=== PATIENT | male | born 1970 | race Caucasian/White ===

== ENCOUNTER 2020-07-04 05:36 | Inpatient (IN) ==
[2020-07-04] MEDS ORDERED: ONDANSETRON 4 MG/2 ML VIAL IV ONE (05:59)
[2020-07-04] MEDS ORDERED: PHENobarb/HYOSCY/ATROPINE/SCOP 1 DOSE BOTTLE PO ONE (05:59)
[2020-07-04] MEDS ORDERED: LORazepam 2 MG/ML VIAL IV ONE (06:00)
--- NOTE | 2020-07-04 06:12 | Emergency Department Note ---
HPI General Chief complaint: Fall Stated complaint: FALL Time Seen by Provider: 07/04/20 05:50 Source: patient Mode of arrival: ambulatory Limitations: no limitations History of Present Illness HPI Narrative: Narrative: Patient presents to room T5 for evaluation of multiple complaints. The patient does have a history of chronic pain syndrome and recurrent alcohol abuse. The patient states that he started drinking several days ago. He states he continued to drink to "avoid withdrawal." He subsequently had a mechanical fall where he injured his right shoulder. He also states he has had multiple episodes of vomiting associated with drinking. He states this is caused him to be dehydrated. He reports he has difficulty hydrating orally due to the fact that he is esophagus is so raw from all of the vomiting. He states that he did have some mild blood streaks noted in his vomitus. He states that he has not eaten much food over the last several days as well. She reports diffuse pain throughout his body but does not localize 1 specific area of pain. Symptoms are constant. He denies any exacerbating or alleviating factors. Related Data Previous Rx's Medication Instructions Recorded promethazine 25 mg tablet 25 mg PO Q6H PRN #30 tab 01/25/17 bilat thumb spica splint #2 each 04/12/19 albuterol sulfate 90 mcg/actuation 90 mcg INHALATION Q6H PRN #18 g 08/07/19 aerosol inhaler fluticasone propionate 50 1 spray INTRANASAL BID #16 g 08/07/19 mcg/actuation nasal spray,suspension lisinopril 20 mg tablet See Rx Instructions .ROUTE 11/21/19 .COMPLEX #30 tab lorazepam 1 mg tablet 1 mg PO ONCE PRN #2 tab 12/17/19 pregabalin 50 mg capsule 50 mg PO .COMPLEX #60 cap 01/15/20 fluticasone 500 mcg-salmeterol 50 See Rx Instructions .ROUTE 02/20/20 mcg/dose blistr powdr for .COMPLEX #60 each inhalation omeprazole 40 mg capsule,delayed See Rx Instructions .ROUTE 03/21/20 release .COMPLEX #30 cap meloxicam 15 mg tablet 15 mg PO QDAY #30 tab 04/30/20 montelukast 10 mg tablet 10 mg PO QHS #90 tab 04/30/20 amitriptyline 100 mg tablet See Rx Instructions .ROUTE 05/08/20 .COMPLEX #90 tab amlodipine 10 mg tablet See Rx Instructions .ROUTE 05/20/20 .COMPLEX #90 tab methocarbamol 750 mg tablet 750 mg PO QHS PRN #30 tab 05/23/20 hydrocodone 7.5 mg-acetaminophen 1 tab PO QHS PRN #30 tab MDD 1 06/13/20 325 mg tablet duloxetine 60 mg capsule,delayed 60 mg PO QDAY #30 cap 06/24/20 release Allergies Allergy/AdvReac Type Severity Reaction Status Date / Time No Known Drug Allergies Allergy Unknown Verified 06/24/20 10:54 [NO KNOWN DRUG ALLERGIES] dust Allergy Unknown Watery Eye Uncoded 06/24/20 10:54 trees Allergy Unknown Watery Eye Uncoded 06/24/20 10:54 Review of Systems ROS ROS Narrative: Narrative: All systems ED: reviewed and negative except as stated. PFSH Narrative Patient History Narrative: Narrative: Medical/Surgical/Family History All Active Problems (Updated 07/04/20 @ 06:12 by Ponce Ignacio MD) Alcoholic gastritis (Acute) Injury of shoulder (Acute) History of colonoscopy (Acute 04/09/20) Cervical myelopathy (Chronic) Cervical radiculopathy (Chronic) Chronic pain (Chronic) Pain of both elbows (Chronic) Bilateral hand numbness (Chronic) Hyperlipidemia (Chronic) Thoracic spondylosis without myelopathy (Chronic) Prolapsed cervical intervertebral disc (Chronic) Cervical disc disorder with radiculopathy (Chronic) Tendonitis (Chronic) Right knee pain (Chronic) Cramping of hands (Chronic) Sciatica (Chronic) Right shoulder pain (Chronic) Numbness and tingling of right arm (Chronic) Right-sided chest pain (Chronic) Asthma (Chronic) Wears partial dentures (Chronic) Snoring (Chronic) Seasonal allergies (Chronic) Hearing loss (Chronic) Migraine (Chronic) Triceps tendon rupture (Chronic) History of ECG (Chronic 02/20/15) Headache (Chronic) Neck pain (Chronic) Psoriasis (Chronic 08/01/14) Pancreatitis (Chronic) Essential hypertension (Chronic) Chronic low back pain (Chronic 08/01/14) Alcoholism (Chronic 07/30/14) Adjustment reaction with anxiety and depression (Chronic 07/30/14) Acne (Chronic) Acid reflux (Chronic) Medical History Abdominal pain Acid reflux 04/18/18 he has been off omeprazole, plan to restart Acne Adjustment reaction with anxiety and depression (07/30/14) improved on paroxetine and lorazepam. 07/22/15 patient took himself off medication approximately one month ago and does not want to start back on medication. I discussed the importance of medication and the rationale for continued use, abstaining from alcohol but he declines at this time. 12/09/15 stop lorazepam, I discussed with patient I would no longer give him lorazepam with his continued alcohol use and use of hydrocodone 06/07/17 PHQ 9=15. improving per patient, agreeable to dose increase of amitriptyline 04/18/18 PHQ 9=11. Continue amitriptyline 75 and Cymbalta 20, encouraged him to abstain from alcohol, follow-up 3 months 07/18/2018 feeling okay, declines PHQ 9, request a dose increase in amitriptyline, plan to slowly taper up to 100 mg and continue Cymbalta 20 01/15/2020 he is feeling stable on amitriptyline and Cymbalta, follow-up 2 months 03/18/20 deteriorated with weather change and dark days, increase Cymbalta 30 mg, continue amitriptyline, follow-up 3 months Alcoholic intoxication Alcoholism (07/30/14) 12/09/15 stressed importance of support through and [facility]. Abstain from alcohol, discussed rationale. per patient report, he has cut down considerably on alcohol 03/17/16 patient drinking again, advised him to quit, discussed the risks associated with hydrocodone and alcohol and I declined refilling hydrocodone today he was upset and walked out 07/18/2018 praise for continued decreased amounts of alcohol, continue these efforts 03/18/2020 feels stable on amitriptyline Anxiety Arthritis of right acromioclavicular joint Asthma 04/18/18 deteriorated, increase Flovent, discussed rationale, continue to use albuterol as needed, follow-up 3-month 07/18/2018 not completely improved, increase Flovent, add Singulair, Itzel and Flonase, discussed rationale, use and side effects, follow-up 1 month 08/15/2018 stop Flovent, start Advair, continue Singulair, Itzel and Flonase, discussed rationale and side effects, follow-up 3 months 04/10/2019 stable with Advair, Singulair, Flonase. Continue. Insurance would not cover Itzel, follow-up 3 months 08/07/2019 improved with Advair, Singulair, Flonase Bilateral hand numbness Nerve conduction study normal 08/07/2019 wear braces, use anti-inflammatories and to start physical therapy 11/06/2019 continues to have right thumb tendinitis, completed physical therapy, continue to wear thumb spica splint Cervical disc disorder with radiculopathy 08/07/2019 start low-dose gabapentin, discussed use, rationale & side effects, follow-up with Ortho, follow-up here in 3 months 11/06/2019 increase gabapentin 300 twice daily, discussed side effects, he has an appoint with orthopedics in 1 month if he does not show for this appointment he will be discharged from their clinic, follow-up 1 month 12/12/2019 continued, physical therapy not approved by insurance, continue Mob ic, trial of 1 hydrocodone a day, discussed risks versus benefits, referred to the pain clinic and follow-up in 1 month 01/15/2020 he stopped gabapentin, physical therapy not approved by insurance, encouraged him to be in contact with the pain clinic for a plan, trial of Lyrica, discussed use, rationale and side effects. Follow-up 2 months Cervical myelopathy Cervical radiculopathy Chronic low back pain (08/01/14) 12/26/2018 obtain x-ray, encouraged gentle stretching, range of motion, continue muscle relaxer, Mobic, start physical therapy and follow-up in 3 months 04/10/2019 ongoing, encouraged him to get back with physical therapy, continue muscle relaxer, Mobic, follow-up 3 months 07/12/2019 deteriorated, continue muscle relaxer, Mobic, tramadol given for increased pain 12/12/2019 continued, physical therapy not approved by insurance, continue Mobic, trial of 1 hydrocodone a day, discussed risks versus benefits, referred to the pain clinic and follow-up in 1 month 01/15/2020 he stopped gabapentin, physical therapy not approved by insurance, encouraged him to be in contact with the pain clinic for a plan, trial of Lyrica, discussed use, rationale and side effects. Follow-up 2 months 03/18/19 no longer taking gabapentin, plans to start physical therapy, continue Lyrica, increase duloxetine to 30 mg, continue care at the pain clinic, follow-up 3 months Chronic pain Concussion Concussion Depression Diarrhea Essential hypertension 03/18/20 stable on lisinopril 20mg and amlodipine 10mg, encouraged healthy diet, exercise, check fasting labs, follow-up 3 months Gastritis Gastritis Headache encouraged gentle stretching, range of motion, use of heat and prevention of tension headache to prevent migraine headaches. 11/07/15 strongly encouraged him to take nightly Topamax, hydrocodone when necessary. 12/09/15 reviewed the above and recent head CT in ER with pt today. 02/10/16 Discussed the risks associated with hydrocodone and alcohol use and these should not to be taken together. follow up 4-6 weeks 03/17/16 patient drinking and taking hydrocodone, I declined filling hydrocodone today and patient upset and walked out 04/22/[address] Butts and last seen 04/12/16 next appointment 12/29/16 pt declines going back to Dr. Butts, I decline giving him hydrocodone, discussed multiple reasons for not giving hydrocodone, pt upset and states he will find a provider who will give it to him 01/25/17 Imitrex, gabapentin and Topamax not helpful. he isn't sure if he is tried amitriptyline or nortriptyline. discussed headaches at length, tension headaches and migraines. Handout on migraine headaches given. Encourage headache journal and avoidance of food, beverages and lifestyle habits that contribute to headaches. Encouraged gentle stretching, range of motion, improved posture and trial of Maxalt. Follow-up 1 month 02/24/17 Maxalt not helpful. Discussed headaches in detail, triggers, trial of amitriptyline and slowly titrate up, discussed use, rationale and side effects. Follow up in 6-8 weeks, sooner if needed 04/05/17? Unchanged, is tolerating headaches better, increased amitriptyline from 20 to 25mg, follow-up 3 months 06/07/17 increase amitriptyline to 35 mg, discussed with patient we may need to be on a higher dose of amitriptyline 01/13/18 encouraged him to abstain from alcohol, increase amitriptyline to 75 mg bedtime and Cymbalta 20 mg a day, follow-up 3 months, sooner if needed 04/10/2019 improved with amitriptyline 100 and Cymbalta 20 Hearing loss Heartburn History of CT scan of head (11/28/15) History of ECG (02/20/15) Hyperlipidemia 08/07/2019 improved, LDL 124, recheck 1 year Indigestion Laceration Left rib fracture Left rib fracture Migraine Maxalt, sumatriptan, Topamax, gabapentin not helpful. seen by Jagdish Butts 04/12/16 12/29/16 pt declines going back to Dr. Butts, I decline giving him hydrocodone, discussed multiple reasons for not giving hydrocodone, pt upset 04/05/17 ? Unchanged, is tolerating headaches better, increased amitriptyline 04/18/18 chronic ongoing, continue amitriptyline 75 mg bedtime and Cymbalta 20 mg a day, follow-up 3 months, sooner if needed 04/10/2019 improved with amitriptyline 100 and Cymbalta 20 07/12/2019 deteriorated, discussed common triggers, continue Mobic, muscle relaxer, tramadol given for severe pain, obtain MRI of brain and follow-up 2 months 01/15/2020 brain MRI showing normal brain Neck pain 09/01/17 reviewed recent MRI of neck with patient, refer to orthopedics for both right shoulder and neck, Cymbalta, trial of prednisone, cyclobenzaprine and Mobic 10/13/17 status post right shoulder surgery on 09/05/17, neck surgery is scheduled next per patient. Patient never took prednisone. Continues to take Cymbalta and amitriptyline 04/18/18 cyclobenzaprine not helpful, continue Mobic, encouraged him to follow- up with orthopedics 07/18/2018 he has not heard from orthopedics, referral made today, continue Mobic 11/24/2018 deteriorated, unable to tolerate physical therapy, increase Mobic, encouraged him to contact orthopedics and follow-up here in 1 month 12/26/2018 he has been unable to contact orthopedic, refer to the pain clinic 04/10/2019 chronic ongoing, encouraged gentle stretching, range of motion, Mobic, muscle relaxer, PT, follow-up 3 months and consider pain clinic 07/12/2019 deteriorated, obtain MRI, refer back to Ortho, continue Mobic, muscle relaxer, gentle stretching, range of motion, tramadol for severe pain, follow-up 2 months 12/12/2019 continued, physical therapy not approved by insurance, continue Mobic, trial of 1 hydrocodone a day, discussed risks versus benefits, referred to the pain clinic and follow-up in 1 month 01/15/2020 he stopped gabapentin, physical therapy not approved by insurance, reviewed recent imaging with patient in detail, encouraged him to be in contact with the pain clinic for a plan, trial of Lyrica, discussed use, rationale and side effects. Follow-up 2 months 03/18/2020 continue care at pain clinic, start physical therapy, continue Lyrica, follow-up 3 months Numbness and tingling of right arm 06/07/17 encouraged massage, gentle stretching, range of motion, use of heat, obtain x-ray and MRI. 10/13/17 status post right shoulder surgery on 09/05/17, neck surgery is scheduled next per patient 07/12/2019 nerve conduction study normal, encouraged him to follow-up with orthopedics, obtain thumb spica splints 11/06/2019 nerve pain likely from his neck, keep Ortho appointment scheduled, wear thumb spica splint Pain of both elbows Nerve conduction study normal 08/07/2019 wear braces, use anti-inflammatories and to start physical therapy 11/06/2019 he completed physical therapy Pancreatitis Prolapsed cervical intervertebral disc Psoriasis (08/01/14) Right shoulder pain 09/01/17 request records from orthopedics, sounds like he will have surgery soon 10/13/17 status post surgery, healing well, continue new orthopedics recommendations Right-sided chest pain 06/07/17 encouraged massage, gentle stretching, range of motion, use of heat, obtain x-ray and MRI. Follow-up 4-6 weeks 07/20/17 still awaiting MRI, it is scheduled today start physical therapy, obtain nerve conduction study and shoulder MRI, follow-up 6 weeks Sciatic pain Sciatica 2012 Sciatica Seasonal allergies 07/18/2018 add Singulair, Itzel and Flonase, discussed use, rationale and side effects. 08/07/2019 attempt to get Itzel approved, refilled Singulair, Flonase Snoring Subacromial impingement of right shoulder Subdural hematoma, post-traumatic (02/20/15) Subdural hematoma, post-traumatic Swelling of joint, elbow, right x-ray negative for fracture. 11/07/15 improved, seen by or so, continue to wear sling 12/09/15 continues to have pain elbow site, worse after using, okay to use hydrocodone as needed for pain 01/09/16 improved Thoracic spondylosis without myelopathy 12/26/2018 encouraged gentle stretching, range of motion, start physical therapy Triceps tendon rupture Right, Initial encounter URI (upper respiratory infection) URI (upper respiratory infection) Wears partial dentures Surgical History H/O craniotomy (02/20/15) Dr. Chen 02/20/15 for subdural hematoma History of arthroscopy of right shoulder (09/05/17) 09/05/17 [facility] History of colonoscopy (04/09/20) History of esophagogastroduodenoscopy (05/28/15) History of oral surgery 1985 Family History Grandfather Cerebrovascular accident Malignant neoplasm of lung Grandmother Malignant neoplasm of lung Acute myocardial infarction Social History Smoking Status: Never smoker Alcohol Intake Frequency: a few times a month Substance Use: marijuana Exam Narrative Narrative: Narrative: General Limitations: no limitations General appearance: Present alert and in no apparent distress Head Head: Present atraumatic, normocephalic and normal inspection Eye Eye: Present normal appearance and EOMI; Absent conjunctival injection ENT ENT: Present normal exam and mucous membranes moist Neck Neck: Present normal inspection and trachea midline Respiratory Respiratory: Present normal lung sounds bilaterally; Absent respiratory distress Cardiovascular Cardiovascular: Present regular rate, normal rhythm and normal heart sounds Adbominal Abdominal: Present soft; Absent distention, tenderness, guarding and rebound Extremities Extremities: Present normal inspection and full ROM; Absent tenderness (The patient has ecchymosis overlying the anterior there is full range of motion without pain. There are no pops or clicks. There is no focal areas of tenderness to palpation or obvious deformity.) Back Back: Present normal inspection; Absent tenderness Neurological Neurological: Present alert, oriented X3 and CN II-XII intact; Absent motor sensory deficit Psychiatric Psychiatric: Present normal affect and normal mood Skin Skin: Present warm (WNL), dry and other (Diffuse ecchymosis over the right anterior chest and shoulder.); Absent rash Course Vital Signs Vital signs: Vital Signs Temperature 97.3 F 07/04/20 05:38 Pulse Rate 129 H 07/04/20 05:38 Respiratory Rate 18 07/04/20 05:38 Blood Pressure 151/112 07/04/20 05:38 Pulse Oximetry (%) 100 07/04/20 05:38 Temperature 97.3 F 07/04/20 05:38 Pulse Rate 129 H 07/04/20 05:38 Respiratory Rate 18 07/04/20 05:38 Blood Pressure 151/112 07/04/20 05:38 Pulse Oximetry (%) 100 07/04/20 05:38 MDM MDM Narrative Medical decision making narrative: Narrative: On arrival the patient has multiple complaints however is pleasant and is in no apparent distress. The patient is tachycardic and he was given IV fluid hydration in the form of a banana bag. He was also given Zofran and Ativan for withdrawal symptoms. The patient does not have any form of delirium or hypertension and I have low suspicion for major alcohol withdrawal or impending DTs at this time. The patient was also given a GI cocktail for his reported dysphagia. I suspect the patient does have a certain amount of alcoholic gastritis/esophagitis which we will treat. Diagnostic studies have been ordered. These have not yet resulted. I have asked the oncoming physician to follow-up on these lab results as well as assumed care, reassess the patient and provide disposition. Discharge Plan Patient/Caregiver Discharge Instructions Pt seen by FOREMAN/PROJECT MANAGER/PA only: No Clinical Impression: Alcoholic gastritis, Injury of shoulder Patient Disposition: Still a Patient Follow up with: Britany Chow ARNP [Primary Care Provider] - Prescriptions: No Action (DME) bilat thumb spica splint medium Qty: 2 RF: 0 lisinopril 20 mg tablet See Rx Instructions .ROUTE .COMPLEX Qty: 30 RF: 8 lorazepam 1 mg tablet 1 mg PO ONCE PRN (Reason: anxiety) Qty: 2 RF: 0 fluticasone propion-salmeterol 500-50 mcg/dose blister with device See Rx Instructions .ROUTE .COMPLEX Qty: 60 RF: 0 omeprazole 40 mg capsule,delayed release(DR/EC) See Rx Instructions .ROUTE .COMPLEX Qty: 30 RF: 9 montelukast 10 mg tablet 10 mg PO QHS Qty: 90 RF: 1 meloxicam 15 mg tablet 15 mg PO QDAY Qty: 30 RF: 0 amitriptyline 100 mg tablet See Rx Instructions .ROUTE .COMPLEX Qty: 90 RF: 0 amlodipine 10 mg tablet See Rx Instructions .ROUTE .COMPLEX Qty: 90 RF: 0 methocarbamol 750 mg tablet 750 mg PO QHS PRN (Reason: muscle spasm) Qty: 30 RF: 0 hydrocodone-acetaminophen 7.5-325 mg tablet 1 tab PO QHS MDD 1 PRN (Reason: pain) Qty: 30 RF: 0 fluticasone propionate [Flonase Allergy Relief] 50 mcg/actuation spray,suspension 1 spray Intranasal BID Qty: 16 RF: 11 albuterol sulfate 90 mcg/actuation HFA aerosol inhaler 90 mcg INHALATION Q6H PRN (Reason: shortness of breath) Qty: 18 RF: 2 pregabalin [Lyrica] 50 mg capsule 50 mg PO .COMPLEX Qty: 60 RF: 2 promethazine 25 mg tablet 25 mg PO Q6H PRN (Reason: nausea and vomiting) Qty: 30 RF: 0 duloxetine [Cymbalta] 60 mg capsule,delayed release(DR/EC) 60 mg PO QDAY Qty: 30 RF: 3
[2020-07-04] MEDS: POTASSIUM CHLORIDE 20 MEQ, MAGNESIUM SULFATE 16.24 MEQ, THIAMINE 100 MG, MVI, ADULT NO.... IV SCH ×4 (06:34→18:39)
[2020-07-04 06:49] LABS: Basophils # (Auto) 0.03 K/mcL (0.00-0.20); Basophils % (Auto) 0.1 % (0.0-2.0); Eosinophils # (Auto) 0 K/mcL (0.00-0.70); Eosinophils % (Auto) 0 % (0.0-7.0); Hematocrit 35.5 % (41.0-55.0); Hemoglobin 13.3 g/dL (13.5-16.5); Lymphocytes # (Auto) 1.22 K/mcL (1.50-4.80); Lymphocytes % (Auto) 5.4 % (15.0-49.0); Mean Cell Volume 87.9 fL (80.0-100.0); Mean Corpuscular HGB Conc 37.5 g/dL (31.0-36.0); Mean Platelet Volume 9.9 fL (7.4-10.4); Monocytes # (Auto) 1.41 K/mcL (0.10-0.90); Monocytes % (Auto) 6.3 % (1.0-12.0); Neutrophils % (Auto) 88.2 % (38.0-78.0); Platelet Count 264 K/mcL (140-440); RBC 4.04 M/mcL (4.50-5.90); Red Cell Distribution Width 11.7 % (11.5-14.5); WBC 22.5 K/mcL (4.5-11.0)
[2020-07-04 07:03] LABS: ALT/SGPT 76 U/L (<40); AST/SGOT 72 U/L (<40); Albumin 4.2 gm/dL (3.2-5.2); Albumin/Globulin Ratio 1.2 (1.0-2.3); Alkaline Phosphatase 97 U/L (39-117); Bilirubin,Total 0.7 mg/dL (0.1-1.0); Blood Urea Nitrogen 25 mg/dL (6-20); Calcium 9.4 mg/dL (8.6-10.4); Carbon Dioxide 26 mmol/L (22-30); Chloride 81 mmol/L (96-108); Globulin 3.6 gm/dL (2.2-3.7); Glomerular Filtration Rate 87; Glucose 174 mg/dL (70-105)
[2020-07-04] MEDS ORDERED: CEFEPIME 2 GM VIAL IV ONE (07:39)
--- NOTE | 2020-07-04 07:43 | Emergency Department Note ---
Fall HPI General Chief Complaint: Fall Stated Complaint: FALL Time Seen by Provider: 07/04/20 05:50 Source: patient Mode of arrival: ambulatory History of Present Illness HPI Narrative: Care assumed from Dr. Ignacio. 50-year-old male arrives after being very unsteady and falling recently. History of alcohol abuse states he is not had an alcoholic drink in the last several days. Has large area of ecchymosis right shoulder without pain and has full painless range of motion. Denies fevers but states he has had some chills. Also has had significant nausea and vomiting he states are related to alcohol abuse. Patient denies chest pain denies shortness of breath denies. Denies any diarrhea. Related Data Previous Rx's Medication Instructions Recorded bilat thumb spica splint #2 each 04/12/19 albuterol sulfate 90 mcg/actuation 90 mcg INHALATION Q6H PRN #18 g 08/07/19 aerosol inhaler amitriptyline 100 mg tablet See Rx Instructions .ROUTE 07/22/20 .COMPLEX #90 tab amlodipine 10 mg tablet See Rx Instructions .ROUTE 07/22/20 .COMPLEX #90 tab duloxetine 60 mg capsule,delayed 60 mg PO QDAY #90 cap 07/22/20 release etodolac 400 mg tablet 400 mg PO BID PRN #60 tab 07/22/20 fluticasone 500 mcg-salmeterol 50 See Rx Instructions .ROUTE 07/22/20 mcg/dose blistr powdr for .COMPLEX #60 each inhalation fluticasone propionate 50 1 spray INTRANASAL BID #16 g 07/22/20 mcg/actuation nasal spray,suspension lisinopril 20 mg tablet See Rx Instructions .ROUTE 07/22/20 .COMPLEX #90 tab methocarbamol 750 mg tablet 750 mg PO QHS PRN #90 tab 07/22/20 montelukast 10 mg tablet 10 mg PO QHS #90 tab 07/22/20 pantoprazole 40 mg tablet,delayed 40 mg PO QDAY #90 tab 07/22/20 release pregabalin 50 mg capsule 50 mg PO BID #180 cap 07/22/20 Allergies Allergy/AdvReac Type Severity Reaction Status Date / Time No Known Drug Allergies Allergy Unknown Verified 07/22/20 11:22 [NO KNOWN DRUG ALLERGIES] Review of Systems ROS ROS Narrative: Narrative: All systems ED: reviewed and negative except as stated. Constitutional: Reports chills; Denies fever Eyes: Denies vision change Cardiovascular: Denies chest pain Respiratory: Denies shortness of breath and cough Gastrointestinal: Denies abdominal pain, vomiting and diarrhea Genitourinary: Denies dysuria, frequency, urgency and hematuria Musculoskeletal: Denies back pain and joint pain Integumentary: Denies rash Neurological: Reports abnormal gait (Unsteady gait); Denies headache and dizziness Psychiatric: Denies anxiety, suicidal thoughts and homicidal thoughts Endocrine: Denies polydipsia and polyuria Hematological/Lymphatic: Denies easy bleeding and easy bruising [facility] Narrative Patient History Narrative: Narrative: Medical/Surgical/Family History All Active Problems (Updated 07/22/20 @ 13:21 by NAJMA Johnson) Delirium tremens (Acute) Hematemesis (Acute) Gastroparalysis (Acute) Alcoholic gastritis (Acute) Injury of shoulder (Acute) Leukocytosis (Acute) Hyponatremia (Acute) Dehydration (Acute) Hypokalemia (Acute) History of colonoscopy (Acute 04/09/20) Cervical myelopathy (Chronic) Cervical radiculopathy (Chronic) Chronic pain (Chronic) Pain of both elbows (Chronic) Bilateral hand numbness (Chronic) Hyperlipidemia (Chronic) Thoracic spondylosis without myelopathy (Chronic) Prolapsed cervical intervertebral disc (Chronic) Cervical disc disorder with radiculopathy (Chronic) Tendonitis (Chronic) Right knee pain (Chronic) Cramping of hands (Chronic) Sciatica (Chronic) Right shoulder pain (Chronic) Numbness and tingling of right arm (Chronic) Right-sided chest pain (Chronic) Asthma (Chronic) Wears partial dentures (Chronic) Snoring (Chronic) Seasonal allergies (Chronic) Hearing loss (Chronic) Migraine (Chronic) Triceps tendon rupture (Chronic) History of ECG (Chronic 02/20/15) Headache (Chronic) Neck pain (Chronic) Psoriasis (Chronic 08/01/14) Pancreatitis (Chronic) Essential hypertension (Chronic) Chronic low back pain (Chronic 08/01/14) Alcoholism (Chronic 07/30/14) Adjustment reaction with anxiety and depression (Chronic 07/30/14) Acne (Chronic) Acid reflux (Chronic) Medical History Abdominal pain Acid reflux 04/18/18 he has been off omeprazole, plan to restart Acne Adjustment reaction with anxiety and depression (07/30/14) improved on paroxetine and lorazepam. 07/22/15 patient took himself off medication approximately one month ago and does not want to start back on medication. I discussed the importance of medication and the rationale for continued use, abstaining from alcohol but he declines at this time. 12/09/15 stop lorazepam, I discussed with patient I would no longer give him lorazepam with his continued alcohol use and use of hydrocodone 06/07/17 PHQ 9=15. improving per patient, agreeable to dose increase of amitriptyline 04/18/18 PHQ 9=11. Continue amitriptyline 75 and Cymbalta 20, encouraged him to abstain from alcohol, follow-up 3 months 07/18/2018 feeling okay, declines PHQ 9, request a dose increase in amitriptyline, plan to slowly taper up to 100 mg and continue Cymbalta 20 01/15/2020 he is feeling stable on amitriptyline and Cymbalta, follow-up 2 months 03/18/20 deteriorated with weather change and dark days, increase Cymbalta 30 mg, continue amitriptyline, follow-up 3 months 06/24/2020 deteriorated, increase Cymbalta 60 mg, follow-up 3 months Alcoholic intoxication Alcoholism (07/30/14) 12/09/15 stressed importance of support through and [facility]. Abstain from alcohol, discussed rationale. per patient report, he has cut down considerably on alcohol 03/17/16 patient drinking again, advised him to quit, discussed the risks associated with hydrocodone and alcohol and I declined refilling hydrocodone today he was upset and walked out 07/18/2018 praise for continued decreased amounts of alcohol, continue these efforts 03/18/2020 feels stable on amitriptyline Anxiety Arthritis of right acromioclavicular joint Asthma 04/18/18 deteriorated, increase Flovent, discussed rationale, continue to use albuterol as needed, follow-up 3-month 07/18/2018 not completely improved, increase Flovent, add Singulair, Itzel and Flonase, discussed rationale, use and side effects, follow-up 1 month 08/15/2018 stop Flovent, start Advair, continue Singulair, Itzel and Flonase, discussed rationale and side effects, follow-up 3 months 04/10/2019 stable with Advair, Singulair, Flonase. Continue. Insurance would not cover Iztel, follow-up 3 months 08/07/2019 improved with Advair, Singulair, Flonase Bilateral hand numbness Nerve conduction study normal 08/07/2019 wear braces, use anti-inflammatories and to start physical therapy 11/06/2019 continues to have right thumb tendinitis, completed physical therapy, continue to wear thumb spica splint Cervical disc disorder with radiculopathy 08/07/2019 start low-dose gabapentin, discussed use, rationale & side effects, follow-up with Ortho, follow-up here in 3 months 11/06/2019 increase gabapentin 300 twice daily, discussed side effects, he has an appoint with orthopedics in 1 month if he does not show for this appointment he will be discharged from their clinic, follow-up 1 month 12/12/2019 continued, physical therapy not approved by insurance, continue Mobic, trial of 1 hydrocodone a day, discussed risks versus benefits, referred to the pain clinic and follow-up in 1 month 01/15/2020 he stopped gabapentin, physical therapy not approved by insurance, encouraged him to be in contact with the pain clinic for a plan, trial of Lyrica, discussed use, rationale and side effects. Follow-up 2 months Cervical myelopathy Cervical radiculopathy Chronic low back pain (08/01/14) 12/26/2018 obtain x-ray, encouraged gentle stretching, range of motion, continue muscle relaxer, Mobic, start physical therapy and follow-up in 3 months 04/10/2019 ongoing, encouraged him to get back with physical therapy, continue muscle relaxer, Mobic, follow-up 3 months 07/12/2019 deteriorated, continue muscle relaxer, Mobic, tramadol given for increased pain 12/12/2019 continued, physical therapy not approved by insurance, continue Mobic, trial of 1 hydrocodone a day, discussed risks versus benefits, ref erred to the pain clinic and follow-up in 1 month 01/15/2020 he stopped gabapentin, physical therapy not approved by insurance, encouraged him to be in contact with the pain clinic for a plan, trial of Lyrica, discussed use, rationale and side effects. Follow-up 2 months 03/18/19 no longer taking gabapentin, plans to start physical therapy, continue Lyrica, increase duloxetine to 30 mg, continue care at the pain clinic, follow-up 3 months Chronic pain Concussion Concussion Depression Diarrhea Essential hypertension 06/24/2020 stable on lisinopril 20mg and amlodipine 10mg, encouraged healthy diet, exercise, follow-up 3 months Gastritis Gastritis Headache encouraged gentle stretching, range of motion, use of heat and prevention of tension headache to prevent migraine headaches. 11/07/15 strongly encouraged him to take nightly Topamax, hydrocodone when necessary. 12/09/15 reviewed the above and recent head CT in ER with pt today. 02/10/16 Discussed the risks associated with hydrocodone and alcohol use and these should not to be taken together. follow up 4-6 weeks 03/17/16 patient drinking and taking hydrocodone, I declined filling hydrocodone today and patient upset and walked out 04/22/[address] Butts and last seen 04/12/16 next appointment 12/29/16 pt declines going back to Dr. Butts, I decline giving him hydrocodone, discussed multiple reasons for not giving hydrocodone, pt upset and states he will find a provider who will give it to him 01/25/17 Imitrex, gabapentin and Topamax not helpful. he isn't sure if he is tried amitriptyline or nortriptyline. discussed headaches at length, tension headaches and migraines. Handout on migraine headaches given. Encourage headache journal and avoidance of food, beverages and lifestyle habits that contribute to headaches. Encouraged gentle stretching, range of motion, improved posture and trial of Maxalt. Follow-up 1 month 02/24/17 Maxalt not helpful. Discussed headaches in detail, triggers, trial of amitriptyline and slowly titrate up, discussed use, rationale and side effects. Follow up in 6-8 weeks, sooner if needed 04/05/17? Unchanged, is tolerating headaches better, increased amitriptyline from 20 to 25mg, follow-up 3 months 06/07/17 increase amitriptyline to 35 mg, discussed with patient we may need to be on a higher dose of amitriptyline 01/13/18 encouraged him to abstain from alcohol, increase amitriptyline to 75 mg bedtime and Cymbalta 20 mg a day, follow-up 3 months, sooner if needed 04/10/2019 improved with amitriptyline 100 and Cymbalta 20 Hearing loss Heartburn History of CT scan of head (11/28/15) History of ECG (02/20/15) Hyperlipidemia 08/07/2019 improved, LDL 124, recheck 1 year Indigestion Laceration Left rib fracture Left rib fracture Migraine Maxalt, sumatriptan, Topamax, gabapentin not helpful. seen by Jagdish Butts 04/12/16 12/29/16 pt declines going back to Dr. Butts, I decline giving him hydrocodone, discussed multiple reasons for not giving hydrocodone, pt upset 04/05/17 ? Unchanged, is tolerating headaches better, increased amitriptyline 04/18/18 chronic ongoing, continue amitriptyline 75 mg bedtime and Cymbalta 20 mg a day, follow-up 3 months, sooner if needed 04/10/2019 improved with amitriptyline 100 and Cymbalta 20 07/12/2019 deteriorated, discussed common triggers, continue Mobic, muscle relaxer, tramadol given for severe pain, obtain MRI of brain and follow-up 2 months 01/15/2020 brain MRI showing normal brain Neck pain 09/01/17 reviewed recent MRI of neck with patient, refer to orthopedics for both right shoulder and neck, Cymbalta, trial of prednisone, cyclobenzaprine and Mobic 10/13/17 status post right shoulder surgery on 09/05/17, neck surgery is scheduled next per patient. Patient never took prednisone. Continues to take Cymbalta and amitriptyline 04/18/18 cyclobenzaprine not helpful, continue Mobic, encouraged him to follow- up with orthopedics 07/18/2018 he has not heard from orthopedics, referral made today, continue Mobic 11/24/2018 deteriorated, unable to tolerate physical therapy, increase Mobic, encouraged him to contact orthopedics and follow-up here in 1 month 12/26/2018 he has been unable to contact orthopedic, refer to the pain clinic 04/10/2019 chronic ongoing, encouraged gentle stretching, range of motion, Mobic, muscle relaxer, PT, follow-up 3 months and consider pain clinic 07/12/2019 deteriorated, obtain MRI, refer back to Ortho, continue Mobic, muscle relaxer, gentle stretching, range of motion, tramadol for severe pain, follow-up 2 months 12/12/2019 continued, physical therapy not approved by insurance, continue Mobic, trial of 1 hydrocodone a day, discussed risks versus benefits, referred to the pain clinic and follow-up in 1 month 01/15/2020 he stopped gabapentin, physical therapy not approved by insurance, reviewed recent imaging with patient in detail, encouraged him to be in contact with the pain clinic for a plan, trial of Lyrica, discussed use, rationale and side effects. Follow-up 2 months 03/18/2020 continue care at pain clinic, start physical therapy, continue Lyrica, follow-up 3 months Numbness and tingling of right arm 06/07/17 encouraged massage, gentle stretching, range of motion, use of heat, obtain x-ray and MRI. 10/13/17 status post right shoulder surgery on 09/05/17, neck surgery is scheduled next per patient 07/12/2019 nerve conduction study normal, encouraged him to follow-up with orthopedics, obtain thumb spica splints 11/06/2019 nerve pain likely from his neck, keep Ortho appointment scheduled, wear thumb spica splint Pain of both elbows Nerve conduction study normal 08/07/2019 wear braces, use anti-inflammatories and to start physical therapy 11/06/2019 he completed physical therapy Pancreatitis Prolapsed cervical intervertebral disc Psoriasis (08/01/14) Right shoulder pain 09/01/17 request records from orthopedics, sounds like he will have surgery soon 10/13/17 status post surgery, healing well, continue new orthopedics recommendations Right-sided chest pain 06/07/17 encouraged massage, gentle stretching, range of motion, use of heat, obtain x-ray and MRI. Follow-up 4-6 weeks 07/20/17 still awaiting MRI, it is scheduled today start physical therapy, obtain nerve conduction study and shoulder MRI, follow-up 6 weeks Sciatic pain Sciatica 2012 Sciatica Seasonal allergies 07/18/2018 add Singulair, Itzel and Flonase, discussed use, rationale and side effects. 08/07/2019 attempt to get Itzel approved, refilled Singulair, Flonase Snoring Subacromial impingement of right shoulder Subdural hematoma, post-traumatic (02/20/15) Subdural hematoma, post-traumatic Swelling of joint, elbow, right x-ray negative for fracture. 11/07/15 improved, seen by or so, continue to wear sling 12/09/15 continues to have pain elbow site, worse after using, okay to use hydrocodone as needed for pain 01/09/16 improved Thoracic spondylosis without myelopathy 12/26/2018 encouraged gentle stretching, range of motion, start physical therapy Triceps tendon rupture Right, Initial encounter URI (upper respiratory infection) URI (upper respiratory infection) Wears partial dentures Surgical History H/O craniotomy (02/20/15) Dr. Chen 02/20/15 for subdural hematoma History of arthroscopy of right shoulder (09/05/17) 09/05/17 [facility] History of colonoscopy (04/09/20) History of esophagogastroduodenoscopy (05/28/15) History of oral surgery 1985 Family History Grandfather Cerebrovascular accident Malignant neoplasm of lung Grandmother Malignant neoplasm of lung Acute myocardial infarction Social History Smoking Status: Never smoker Alcohol Intake Frequency: a few times a month Substance Use: marijuana Exam Narrative Narrative: Constitutional: Awake alert no acute distress well-nourished well- developed HEENT: Normocephalic, atraumatic PERRLA, EOMI, oral mucosa moist, pharynx clear Neck: Supple, no lymphadenopathy, no JVD; no cervical spine tenderness, full painless range of motion Lungs: Breathing unlabored, lungs clear Cardiac: Tachycardia regular rhythm normal distal pulses, GI: Soft nontender nondistended no guarding no rebound Musculoskeletal: Ecchymosis over right shoulder. No tenderness, no deformities, no edema, full painless range of motion Neuro: Awake alert, cranial nerves II through XII grossly intact, no focal motor or sensory deficits; GCS 15 Psychiatric: Normal mood and affect Course Consultations Consultation #1: Discussed with radiologist, Dr. Carrington, who reviewed CT head and chest x-ray which I both showed no acute process. Time: 08:38 Consultation #2: Discussed with hospitalist on-call, Dr. Vernon who will come evaluate the patient. Time: 10:15 Vital Signs Vital signs: Vital Signs Temperature 97.3 F 07/04/20 05:38 Pulse Rate 129 H 07/04/20 05:38 Respiratory Rate 18 07/04/20 05:38 Blood Pressure 151/112 07/04/20 05:38 Pulse Oximetry (%) 100 07/04/20 05:38 Temperature 100.7 F H 07/08/20 14:06 Pulse Rate 108 H 07/07/20 12:01 Respiratory Rate 16 07/08/20 14:06 Blood Pressure 102/63 07/08/20 14:00 Pulse Oximetry (%) 99 07/08/20 14:06 MDM MDM Narrative Medical decision making narrative: 50-year-old male history of chronic alcohol abuse recent falls and unsteady gait. States his has been vomiting for the last several days and felt dehydrated. Patient states he has a history of alcoholic gastritis. Large area of ecchymosis over right shoulder with painless full range of motion. CT of the brain and chest x-ray showed no acute process. Patient was found to have leukocytosis at 12.5 hemoglobin 13.3 platelets of 35.5. Sodium 123 potassium 3.0 chloride 81 BUN 25 glucose 174. Patient is clinically dehydrated. Suspect unsteadiness is multifactorial history of alcohol abuse as well as hyponatremia and volume depletion. Lactic and blood cultures were obtained due to the leukocytosis and tachycardia meeting SIRS cr iteria. Empiric cefepime was given as well in addition to banana bag. Patient will need to be admitted and hydrated. EKG showed sinus tachycardia with no acute ST changes. Lab Data Result diagrams: 07/06/20 06:35 07/08/20 08:08 Labs: Lab Results 07/04/20 07/04/20 07/04/20 Range/Units 06:12 06:12 06:12 WBC 22.5 H (4.5-11.0) K/mcL RBC 4.04 L (4.50-5.90) M/mcL Hgb 13.3 L (13.5-16.5) g/dL Hct 35.5 L (41.0-55.0) % MCV 87.9 (80.0-100.0) fL MCH 32.9 (26.0-34.0) pg MCHC 37.5 H (31.0-36.0) g/dL RDW 11.7 (11.5-14.5) % Plt Count 264 (140-440) K/mcL MPV 9.9 (7.4-10.4) fL Neut % (Auto) 88.2 H (38.0-78.0) % Lymph % (Auto) 5.4 L (15.0-49.0) % Traverse % (Auto) 6.3 (1.0-12.0) % Eos % (Auto) 0 (0.0-7.0) % Baso % (Auto) 0.1 (0.0-2.0) % Lymph # (Auto) 1.22 L (1.50-4.80) K/mcL Traverse # (Auto) 1.41 H (0.10-0.90) K/mcL Eos # (Auto) 0 (0.00-0.70) K/mcL Baso # (Auto) 0.03 (0.00-0.20) K/mcL Absolute Neutrophils 19.81 H (1.80-8.00) K/mcL VBG Lactic Acid (0.5-2.0) mmol/L Sodium 123 L (133-145) mmol/L Potassium 3.0 L (3.3-5.1) mmol/L Chloride 81 L (96-108) mmol/L Carbon Dioxide 26 (22-30) mmol/L Anion Gap 16.0 (8.0-16.0) BUN 25 H (6-20) mg/dL Creatinine 1.0 (0.7-1.2) mg/dL GFR Calculation 87 Glucose 174 H (70-105) mg/dL Calcium 9.4 (8.6-10.4) mg/dL Magnesium 2.5 (1.6-2.5) mg/dL Total Bilirubin 0.7 (0.1-1.0) mg/dL AST 72 H (<40) U/L ALT 76 H (<40) U/L Alkaline Phosphatase 97 (39-117) U/L Total Protein 7.8 (5.9-8.4) gm/dL Albumin 4.2 (3.2-5.2) gm/dL Globulin 3.6 (2.2-3.7) gm/dL Albumin/Globulin Ratio 1.2 (1.0-2.3) Lipase 22 (7-60) U/L Urine Color Urine Appearance (Clear) Urine pH (5.0-9.0) Ur Specific Justice (1.000-1.035) Urine Protein (Negative) mg/dL Urine Glucose (UA) (Negative) mg/dL Urine Ketones (Negative) mg/dL Urine Occult Blood (Negative) mg/dL Urine Nitrate (Negative) Urine Bilirubin (Negative) mg/dL Urine Urobilinogen mg/dL Ur Leukocyte Esterase (Negative) /ug Urine RBC (0-3) /hpf Urine WBC (0-4) /hpf Ur Squamous Epith Cells (0-4) /hpf Ur Transition Epith Cell (0-2) /hpf Urine Bacteria (0) /hpf Hyaline Casts (0-2) /lph Urine Mucus (None) /hpf Urine Sperm (Absent) /hpf Ur Culture Indicated? Ethyl Alcohol (<0.010) gm/dL 07/04/20 07/04/20 07/04/20 Range/Units 06:12 08:04 09:31 WBC (4.5-11.0) K/mcL RBC (4.50-5.90) M/mcL Hgb (13.5-16.5) g/dL Hct (41.0-55.0) % MCV (80.0-100.0) fL MCH (26.0-34.0) pg MCHC (31.0-36.0) g/dL RDW (11.5-14.5) % Plt Count (140-440) K/mcL MPV (7.4-10.4) fL Neut % (Auto) (38.0-78.0) % Lymph % (Auto) (15.0-49.0) % Traverse % (Auto) (1.0-12.0) % Eos % (Auto) (0.0-7.0) % Baso % (Auto) (0.0-2.0) % Lymph # (Auto) (1.50-4.80) K/mcL Traverse # (Auto) (0.10-0.90) K/mcL Eos # (Auto) (0.00-0.70) K/mcL Baso # (Auto) (0.00-0.20) K/mcL Absolute Neutrophils (1.80-8.00) K/mcL VBG Lactic Acid 1.7 (0.5-2.0) mmol/L Sodium (133-145) mmol/L Potassium (3.3-5.1) mmol/L Chloride (96-108) mmol/L Carbon Dioxide (22-30) mmol/L Anion Gap (8.0-16.0) BUN (6-20) mg/dL Creatinine (0.7-1.2) mg/dL GFR Calculation Glucose (70-105) mg/dL Calcium (8.6-10.4) mg/dL Magnesium (1.6-2.5) mg/dL Total Bilirubin (0.1-1.0) mg/dL AST (<40) U/L ALT (<40) U/L Alkaline Phosphatase (39-117) U/L Total Protein (5.9-8.4) gm/dL Albumin (3.2-5.2) gm/dL Globulin (2.2-3.7) gm/dL Albumin/Globulin Ratio (1.0-2.3) Lipase (7-60) U/L Urine Color Yellow Urine Appearance Hazy A (Clear) Urine pH 6.0 (5.0-9.0) Ur Specific Justice 1.029 (1.000-1.035) Urine Protein 100 A (Negative) mg/dL Urine Glucose (UA) Negative (Negative) mg/dL Urine Ketones 20 A (Negative) mg/dL Urine Occult Blood Negative (Negative) mg/dL Urine Nitrate Negative (Negative) Urine Bilirubin Negative (Negative) mg/dL Urine Urobilinogen 2.0 A mg/dL Ur Leukocyte Esterase Negative (Negative) /ug Urine RBC 1 (0-3) /hpf Urine WBC 1 (0-4) /hpf Ur Squamous Epith Cells < 1 (0-4) /hpf Ur Transition Epith Cell < 1 (0-2) /hpf Urine Bacteria None (0) /hpf Hyaline Casts 13 H (0-2) /lph Urine Mucus Mod A (None) /hpf Urine Sperm Present A (Absent) /hpf Ur Culture Indicated? No Ethyl Alcohol < 0.010 (<0.010) gm/dL ED POC Tests ED POC Tests: NIKKI - SARS Antigen Negative EKG Data EKG #1: EKG attestation: Yes I reviewed and interpreted this EKG. and Yes There are no EKG findings of acute coronary syndrome EKG results narrative: EKG performed at 805 shows sinus tachycardia rate of 111 normal axis borderline prolonged QT interval, no ectopy no acute ST changes Discharge Plan Patient/Caregiver Discharge Instructions Pt seen by STONE SETTER/PA only: No Clinical Impression: Alcoholic gastritis, Injury of shoulder, Leukocytosis, Hyponatremia, Dehydration, Hypokalemia Activity: increase activity as tolerated Patient Disposition: Xfer As Inpt ([facility]) Condition: Fair Discharge Date/Time: 07/04/20 13:00
--- NOTE | 2020-07-04 08:41 | Cat Scan Report ---
History: Fell, unsteady gait, prior craniotomy 2015 for subdural hematoma TECHNIQUE: The brain was imaged without contrast at 2.5 mm intervals. Sagittal and coronal reformats are created. The radiation exposure was limited using dose reduction technology. FINDINGS: There is a craniotomy defect in the right frontal bone. No new intracranial hemorrhage has developed. There is no subdural fluid collection. No infarct or mass are present. There is a subtle atrophy above and below the tentorium. The ventricles are normal in size. Bone windows show no skull fracture. Comparison with the prior brain MRI done on 07/20/19 shows no change. IMPRESSION: Normal exam Dr. Lund was called with the report Interpreted and Authenticated by: Andre Carrington 07/04/20
--- NOTE | 2020-07-04 08:42 | XRay Report ---
HISTORY: Chills and leukocytosis, recent fall FINDINGS: The lungs are clear and well expanded without evidence of pneumonia. There is no adenopathy or pleural effusion. The heart size is normal. There is an old healed fracture anterolaterally in the left sixth rib. No new fracture is seen. Distal end of the right clavicle had been partially resected. IMPRESSION: Normal exam Interpreted and Authenticated by: Andre Carrington 07/04/20
[2020-07-04 08:48] LABS: Alcohol, Blood < 10.0 mg/dL; Alcohol,Blood < 0.010 gm/dL (<0.010)
[2020-07-04] MEDS ORDERED: 0.9 % SODIUM CHLORIDE 1,000 ML IV ONE (09:38)
[2020-07-04 10:56] LABS: Appearance,Urine HAZY (Clear); Bilirubin,Urine Negative (Negative); Color,Urine YELLOW; Culture Indicated,Urine No; Glucose,Urine (UA) Negative (Negative); Ketones,Urine 20 mg/dL (Negative); Leukocyte Esterase,Urine Negative /ug (Negative); Mucus,Urine MOD /hpf; Nitrate,Urine Negative (Negative); Protein,Urine 100 mg/dL (Negative); Specific Gravity,Urine 1.029 (1.000-1.035); Sperm,Urine PRESENT /hpf (Absent); Urine Blood Negative (Negative); Urine Hyaline Cast 13 /lph (0-2); Urine RBC 1 /hpf (0-3); Urine Squamous Epithelial Cell < 1 /hpf (0-4); Urine Transitional Epi Cells < 1 /hpf (0-2); Urine WBC 1 /hpf (0-4)
[2020-07-04] MEDS ORDERED: METHOCARBAMOL 750 MG TABLET PO PRN ×2 (11:00→13:45)
[2020-07-04] MEDS ORDERED: ALBUTEROL SULFATE 200 PUFF INHALER INH PRN ×2 (11:00→13:45)
[2020-07-04] MEDS ORDERED: morphine 2 MG/ML VIAL IV PRN (11:12)
--- NOTE | 2020-07-04 11:21 | Internal Med History&Physical ---
HPI History of Present Illness Patient information: Note initiated : 07/04/20 at 11:15 am Service Date, if different from initiated Date: [] Patient: Emanuel Beyer 50 y/o M admitted on for Fall. Chief Complaint: [intractable nausea vomiting with hematemesis] History of present illness: Mr. Beyer is a 50 year old M h/o essential HTN, GERD, chronic alcoholism, alcoholic pancreatitis, p/w nausea, vomiting, hematemesis, and epigastric and periumbilical abdominal pain. Last prior similar episode was 1 month ago. He has been drinking heavily for years, typically drinks 36 cans of beer per day with last use 3 days ago. He has been having naus ea, vomiting, hematemesis, and epigastric and periumbilical abdominal pain since stopped drinking. The pain is described as 8/10 in intensity, sharp, constant, no alleviating or exacerbating factors. Denies anxiety or diaphoresis or hand tremors. Unable to tolerating any food or drink since symptoms onset. Constitutional Constitutional: Absent chills, excessive sweating, fatigue, fever(s) and weakness EENT Eyes: Absent blurry vision, change in vision, loss of vision and other visual disturbances Ears: Absent decreased hearing and tinnitus Nose, mouth and throat: Absent abnormal hearing, dry mouth, headache(s), nasal congestion and sore throat Cardiovascular Cardiovascular: Absent chest pain, chest pain at rest, edema, irregular heart rhythm and palpatations Respiratory Respiratory: Absent cough, dyspnea and wheezing Gastrointestinal Gastrointestinal: Present abdominal pain, hematemesis, nausea and vomiting; Absent constipation and diarrhea Musculoskeletal Musculoskeletal: Absent back pain, deformity, limited range of motion, muscle cramps, muscle weakness and numbness Integumentary Integumentary: Absent lesions, rash and wounds Neurological Neurological: Absent focal weakness, headache(s) and numbness Psychiatric Psychiatric: Absent anxiety, depression and hallucinations PFSH PFSH All Active Problems (Updated 07/04/20 @ 11:23 by Jerry Vernon MD) Delirium tremens (Acute) Hematemesis (Acute) Gastroparalysis (Acute) Alcoholic gastritis (Acute) Injury of shoulder (Acute) Leukocytosis (Acute) Hyponatremia (Acute) Dehydration (Acute) Hypokalemia (Acute) History of colonoscopy (Acute 04/09/20) Cervical myelopathy (Chronic) Cervical radiculopathy (Chronic) Chronic pain (Chronic) Pain of both elbows (Chronic) Bilateral hand numbness (Chronic) Hyperlipidemia (Chronic) Thoracic spondylosis without myelopathy (Chronic) Prolapsed cervical intervertebral disc (Chronic) Cervical disc disorder with radiculopathy (Chronic) Tendonitis (Chronic) Right knee pain (Chronic) Cramping of hands (Chronic) Sciatica (Chronic) Right shoulder pain (Chronic) Numbness and tingling of right arm (Chronic) Right-sided chest pain (Chronic) Asthma (Chronic) Wears partial dentures (Chronic) Snoring (Chronic) Seasonal allergies (Chronic) Hearing loss (Chronic) Migraine (Chronic) Triceps tendon rupture (Chronic) History of ECG (Chronic 02/20/15) Headache (Chronic) Neck pain (Chronic) Psoriasis (Chronic 08/01/14) Pancreatitis (Chronic) Essential hypertension (Chronic) Chronic low back pain (Chronic 08/01/14) Alcoholism (Chronic 07/30/14) Adjustment reaction with anxiety and depression (Chronic 07/30/14) Acne (Chronic) Acid reflux (Chronic) Medical History Abdominal pain Acid reflux 04/18/18 he has been off omeprazole, plan to restart Acne Adjustment reaction with anxiety and depression (07/30/14) improved on paroxetine and lorazepam. 07/22/15 patient took himself off medication approximately one month ago and does not want to start back on medication. I discussed the importance of medication and the rationale for continued use, abstaining from alcohol but he declines at this time. 12/09/15 stop lorazepam, I discussed with patient I would no longer give him lorazepam with his continued alcohol use and use of hydrocodone 06/07/17 PHQ 9=15. improving per patient, agreeable to dose increase of amitriptyline 04/18/18 PHQ 9=11. Continue amitriptyline 75 and Cymbalta 20, encouraged him to abstain from alcohol, follow-up 3 months 07/18/2018 feeling okay, declines PHQ 9, request a dose increase in amitriptyline, plan to slowly taper up to 100 mg and continue Cymbalta 20 01/15/2020 he is feeling stable on amitriptyline and Cymbalta, follow-up 2 months 03/18/20 deteriorated with weather change and dark days, increase Cymbalta 30 mg, continue amitriptyline, follow-up 3 months 06/24/2020 deteriorated, increase Cymbalta 60 mg, follow-up 3 months Alcoholic intoxication Alcoholism (07/30/14) 12/09/15 stressed importance of support through and [facility]. Abstain from alcohol, discussed rationale. per patient report, he has cut down considerably on alcohol 03/17/16 patient drinking again, advised him to quit, discussed the risks associated with hydrocodone and alcohol and I declined refilling hydrocodone today he was upset and walked out 07/18/2018 praise for continued decreased amounts of alcohol, continue these efforts 03/18/2020 feels stable on amitriptyline Anxiety Arthritis of right acromioclavicular joint Asthma 04/18/18 deteriorated, increase Flovent, discussed rationale, continue to use albuterol as needed, follow-up 3-month 07/18/2018 not completely improved, increase Flovent, add Singulair, Itzel and Flonase, discussed rationale, use and side effects, follow-up 1 month 08/15/2018 stop Flovent, start Advair, continue Singulair, Itzel and Flonase, discussed rationale and side effects, follow-up 3 months 04/10/2019 stable with Advair, Singulair, Flonase. Continue. Insurance would not cover Itzel, follow-up 3 months 08/07/2019 improved with Advair, Singulair, Flonase Bilateral hand numbness Nerve conduction study normal 08/07/2019 wear braces, use anti-inflammatories and to start physical therapy 11/06/2019 continues to have right thumb tendinitis, completed physical therapy, continue to wear thumb spica splint Cervical disc disorder with radiculopathy 08/07/2019 start low-dose gabapentin, discussed use, rationale & side effects, follow-up with Ortho, follow-up here in 3 months 11/06/2019 increase gabapentin 300 twice daily, discussed side effects, he has an appoint with orthopedics in 1 month if he does not show for this appointment he will be discharged from their clinic, follow-up 1 month 12/12/2019 continued, physical therapy not approved by insurance, continue Mobic, trial of 1 hydrocodone a day, discussed risks versus benefits, referred to the pain clinic and follow-up in 1 month 01/15/2020 he stopped gabapentin, physical therapy not approved by insurance, encouraged him to be in contact with the pain clinic for a plan, trial of Lyrica, discussed use, rationale and side effects. Follow-up 2 months Cervical myelopathy Cervical radiculopathy Chronic low back pain (08/01/14) 12/26/2018 obtain x-ray, encouraged gentle stretching, range of motion, continue muscle relaxer, Mobic, start physical therapy and follow-up in 3 months 04/10/2019 ongoing, encouraged him to get back with physical therapy, continue muscle relaxer, Mobic, follow-up 3 months 07/12/2019 deteriorated, continue muscle relaxer, Mobic, tramadol given for increased pain 12/12/2019 continued, physical therapy not approved by insurance, continue Mobic, trial of 1 hydrocodone a day, discussed risks versus benefits, referred to the pain clinic and follow-up in 1 month 01/15/2020 he stopped gabapentin, physical therapy not approved by insurance, encouraged him to be in contact with the pain clinic for a plan, trial of Lyrica, discussed use, rationale and side effects. Follow-up 2 months 03/18/19 no longer taking gabapentin, plans to start physical therapy, continue Lyrica, increase duloxetine to 30 mg, continue care at the pain clinic, follow-up 3 months Chronic pain Concussion Concussion Depression Diarrhea Essential hypertension 06/24/2020 stable on lisinopril 20mg and amlodipine 10mg, encouraged healthy diet, exercise, follow-up 3 months Gastritis Gastritis Headache encouraged gentle stretching, range of motion, use of heat and prevention of tension headache to prevent migraine headaches. 11/07/15 strongly encouraged him to take nightly Topamax, hydrocodone when necessary. 12/09/15 reviewed the above and recent head CT in ER with pt today. 02/10/16 Discussed the risks associated with hydrocodone and alcohol use and these should not to be taken together. follow up 4-6 weeks 03/17/16 patient drinking and taking hydrocodone, I declined filling hydro codone today and patient upset and walked out 04/22/[address] Butts and last seen 04/12/16 next appointment 12/29/16 pt declines going back to Dr. Butts, I decline giving him hydrocodo ne, discussed multiple reasons for not giving hydrocodone, pt upset and states he will find a provider who will give it to him 01/25/17 Imitrex, gabapentin and Topamax not helpful. he isn't sure if he is tried amitriptyline or nortriptyline. discussed headaches at length, tension headaches and migraines. Handout on migraine headaches given. Encourage headache journal and avoidance of food, beverages and lifestyle habits that contribute to headaches. Encouraged gentle stretching, range of motion, improved posture and trial of Maxalt. Follow-up 1 month 02/24/17 Maxalt not helpful. Discussed headaches in detail, triggers, trial of amitriptyline and slowly titrate up, discussed use, rationale and side effects. Follow up in 6-8 weeks, sooner if needed 04/05/17? Unchanged, is tolerating headaches better, increased amitriptyline from 20 to 25mg, follow-up 3 months 06/07/17 increase amitriptyline to 35 mg, discussed with patient we may need to be on a higher dose of amitriptyline 01/13/18 encouraged him to abstain from alcohol, increase amitriptyline to 75 mg bedtime and Cymbalta 20 mg a day, follow-up 3 months, sooner if needed 04/10/2019 improved with amitriptyline 100 and Cymbalta 20 Hearing loss Heartburn History of CT scan of head (11/28/15) History of ECG (02/20/15) Hyperlipidemia 08/07/2019 improved, LDL 124, recheck 1 year Indigestion Laceration Left rib fracture Left rib fracture Migraine Maxalt, sumatriptan, Topamax, gabapentin not helpful. seen by Jagdish Butts 04/12/16 12/29/16 pt declines going back to Dr. Butts, I decline giving him hydrocodone, discussed multiple reasons for not giving hydrocodone, pt upset 04/05/17 ? Unchanged, is tolerating headaches better, increased amitriptyline 04/18/18 chronic ongoing, continue amitriptyline 75 mg bedtime and Cymbalta 20 mg a day, follow-up 3 months, sooner if needed 04/10/2019 improved with amitriptyline 100 and Cymbalta 20 07/12/2019 deteriorated, discussed common triggers, continue Mobic, muscle relaxer, tramadol given for severe pain, obtain MRI of brain and follow-up 2 months 01/15/2020 brain MRI showing normal brain Neck pain 09/01/17 reviewed recent MRI of neck with patient, refer to orthopedics for both right shoulder and neck, Cymbalta, trial of prednisone, cyclobenzaprine and Mobic 10/13/17 status post right shoulder surgery on 09/05/17, neck surgery is scheduled next per patient. Patient never took prednisone. Continues to take Cymbalta and amitriptyline 04/18/18 cyclobenzaprine not helpful, continue Mobic, encouraged him to follow- up with orthopedics 07/18/2018 he has not heard from orthopedics, referral made today, continue Mobic 11/24/2018 deteriorated, unable to tolerate physical therapy, increase Mobic, encouraged him to contact orthopedics and follow-up here in 1 month 12/26/2018 he has been unable to contact orthopedic, refer to the pain clinic 04/10/2019 chronic ongoing, encouraged gentle stretching, range of motion, Mobic, muscle relaxer, PT, follow-up 3 months and consider pain clinic 07/12/2019 deteriorated, obtain MRI, refer back to Ortho, continue Mobic, muscle relaxer, gentle stretching, range of motion, tramadol for severe pain, follow-up 2 months 12/12/2019 continued, physical therapy not approved by insurance, continue Mobic, trial of 1 hydrocodone a day, discussed risks versus benefits, referred to the pain clinic and follow-up in 1 month 01/15/2020 he stopped gabapentin, physical therapy not approved by insurance, reviewed recent imaging with patient in detail, encouraged him to be in contact with the pain clinic for a plan, trial of Lyrica, discussed use, rationale and side effects. Follow-up 2 months 03/18/2020 continue care at pain clinic, start physical therapy, continue Lyrica, follow-up 3 months Numbness and tingling of right arm 06/07/17 encouraged massage, gentle stretching, range of motion, use of heat, obtain x-ray and MRI. 10/13/17 status post right shoulder surgery on 09/05/17, neck surgery is scheduled next per patient 07/12/2019 nerve conduction study normal, encouraged him to follow-up with orthopedics, obtain thumb spica splints 11/06/2019 nerve pain likely from his neck, keep Ortho appointment scheduled, wear thumb spica splint Pain of both elbows Nerve conduction study normal 08/07/2019 wear braces, use anti-inflammatories and to start physical therapy 11/06/2019 he completed physical therapy Pancreatitis Prolapsed cervical intervertebral disc Psoriasis (08/01/14) Right shoulder pain 09/01/17 request records from orthopedics, sounds like he will have surgery soon 10/13/17 status post surgery, healing well, continue new orthopedics recommendations Right-sided chest pain 06/07/17 encouraged massage, gentle stretching, range of motion, use of heat, obtain x-ray and MRI. Follow-up 4-6 weeks 07/20/17 still awaiting MRI, it is scheduled today start physical therapy, obtain nerve conduction study and shoulder MRI, follow-up 6 weeks Sciatic pain Sciatica 2012 Sciatica Seasonal allergies 07/18/2018 add Singulair, Itzel and Flonase, discussed use, rationale and side effects. 08/07/2019 attempt to get Itzel approved, refilled Singulair, Flonase Snoring Subacromial impingement of right shoulder Subdural hematoma, post-traumatic (02/20/15) Subdural hematoma, post-traumatic Swelling of joint, elbow, right x-ray negative for fracture. 11/07/15 improved, seen by or so, continue to wear sling 12/09/15 continues to have pain elbow site, worse after using, okay to use hydrocodone as needed for pain 01/09/16 improved Thoracic spondylosis without myelopathy 12/26/2018 encouraged gentle stretching, range of motion, start physical therapy Triceps tendon rupture Right, Initial encounter URI (upper respiratory infection) URI (upper respiratory infection) Wears partial dentures Surgical History H/O craniotomy (02/20/15) Dr. Chen 02/20/15 for subdural hematoma History of arthroscopy of right shoulder (09/05/17) 09/05/17 [facility] History of colonoscopy (04/09/20) History of esophagogastroduodenoscopy (05/28/15) History of oral surgery 1985 Family History Grandfather Cerebrovascular accident Malignant neoplasm of lung Grandmother Malignant neoplasm of lung Acute myocardial infarction Social History adopted: No caregiver/support person: No foster care: No household members: friend(s) housing: house lives independently: Yes marital status: single education level: high school service: No jail: No occupational status: disabled pets and animals: Yes pets and animals: cat(s) hx recent travel: No sexually active: No alcohol intake frequency: a few times a month substance use type: marijuana MEDS/ALLERGIES Home Medications and Allergies Home Medications Medication Instructions Recorded Confirmed Type promethazine 25 mg tablet 25 mg PO Q6H PRN #30 tab 01/25/17 07/04/20 Rx bilat thumb spica splint #2 each 04/12/19 07/04/20 Rx albuterol sulfate 90 mcg/actuation 90 mcg INHALATION Q6H PRN #18 g 08/07/19 07/04/20 Rx aerosol inhaler fluticasone propionate 50 1 spray INTRANASAL BID #16 g 08/07/19 07/04/20 Rx mcg/actuation nasal spray,suspension lisinopril 20 mg tablet See Rx Instructions .ROUTE 11/21/19 07/04/20 Rx .COMPLEX #30 tab lorazepam 1 mg tablet 1 mg PO ONCE PRN #2 tab 12/17/19 07/04/20 Rx pregabalin 50 mg capsule 50 mg PO .COMPLEX #60 cap 01/15/20 07/04/20 Rx fluticasone 500 mcg-salmeterol 50 See Rx Instructions .ROUTE 02/20/20 07/04/20 Rx mcg/dose blistr powdr for .COMPLEX #60 each inhalation omeprazole 40 mg capsule,delayed See Rx Instructions .ROUTE 03/21/20 07/04/20 Rx release .COMPLEX #30 cap meloxicam 15 mg tablet 15 mg PO QDAY #30 tab 04/30/20 07/04/20 Rx montelukast 10 mg tablet 10 mg PO QHS #90 tab 04/30/20 07/04/20 Rx amitriptyline 100 mg tablet See Rx Instructions .ROUTE 05/08/20 07/04/20 Rx .COMPLEX #90 tab amlodipine 10 mg tablet See Rx Instructions .ROUTE 05/20/20 07/04/20 Rx .COMPLEX #90 tab methocarbamol 750 mg tablet 750 mg PO QHS PRN #30 tab 05/23/20 07/04/20 Rx hydrocodone 7.5 mg-acetaminophen 1 tab PO QHS PRN #30 tab MDD 1 06/13/20 07/04/20 Rx 325 mg tablet duloxetine 60 mg capsule,delayed 60 mg PO QDAY #30 cap 06/24/20 07/04/20 Rx release Allergies Allergy/AdvReac Type Severity Reaction Status Date / Time No Known Drug Allergies Allergy Unknown Verified 06/24/20 10:54 [NO KNOWN DRUG ALLERGIES] dust Allergy Unknown Watery Eye Uncoded 06/24/20 10:54 trees Allergy Unknown Watery Eye Uncoded 06/24/20 10:54 EXAM Constitutional Vitals: Temp Pulse Resp BP Pulse Ox 36.3 C 112 H 18 145/99 97 07/04/20 05:38 07/04/20 10:46 07/04/20 05:38 07/04/20 10:46 07/04/20 10:46 DATA Data Completed and Pending Labs: Labs from last 24 hours 07/04/20 07/04/20 07/04/20 09:31 08:04 06:12 WBC RBC Hgb Hct MCV MCH MCHC RDW Plt Count MPV Neut % (Auto) Lymph % (Auto) [place] % (Auto) Eos % (Auto) Baso % (Auto) Lymph # (Auto) [place] # (Auto) Eos # (Auto) Baso # (Auto) Absolute Neutrophils VBG Lactic Acid 1.7 Sodium Potassium Chloride Carbon Dioxide Anion Gap BUN Creatinine GFR Calculation Glucose Calcium Magnesium Total Bilirubin AST ALT Alkaline Phosphatase Total Protein Albumin Globulin Albumin/Globulin Ratio Lipase Urine Color Yellow Urine Appearance Hazy A Urine pH 6.0 Ur Specific [place] 1.029 Urine Protein 100 A Urine Glucose (UA) Negative Urine Ketones 20 A Urine Occult Blood Negative Urine Nitrate Negative Urine Bilirubin Negative Urine Urobilinogen 2.0 A Ur Leukocyte Esterase Negative Urine RBC 1 Urine WBC 1 Ur Squamous Epith Cells < 1 Ur Transition Epith Cell < 1 Urine Bacteria None Hyaline Casts 13 H Urine Mucus Mod A Urine Sperm Present A Ur Culture Indicated? No Ethyl Alcohol < 0.010 07/04/20 07/04/20 07/04/20 06:12 06:12 06:12 WBC 22.5 H RBC 4.04 L Hgb 13.3 L Hct 35.5 L MCV 87.9 MCH 32.9 MCHC 37.5 H RDW 11.7 Plt Count 264 MPV 9.9 Neut % (Auto) 88.2 H Lymph % (Auto) 5.4 L [place] % (Auto) 6.3 Eos % (Auto) 0 Baso % (Auto) 0.1 Lymph # (Auto) 1.22 L [place] # (Auto) 1.41 H Eos # (Auto) 0 Baso # (Auto) 0.03 Absolute Neutrophils 19.81 H VBG Lactic Acid Sodium 123 L Potassium 3.0 L Chloride 81 L Carbon Dioxide 26 Anion Gap 16.0 BUN 25 H Creatinine 1.0 GFR Calculation 87 Glucose 174 H Calcium 9.4 Magnesium 2.5 Total Bilirubin 0.7 AST 72 H ALT 76 H Alkaline Phosphatase 97 Total Protein 7.8 Albumin 4.2 Globulin 3.6 Albumin/Globulin Ratio 1.2 Lipase 22 Urine Color Urine Appearance Urine pH Ur Specific [place] Urine Protein Urine Glucose (UA) Urine Ketones Urine Occult Blood Urine Nitrate Urine Bilirubin Urine Urobilinogen Ur Leukocyte Esterase Urine RBC Urine WBC Ur Squamous Epith Cells Ur Transition Epith Cell Urine Bacteria Hyaline Casts Urine Mucus Urine Sperm Ur Culture Indicated? Ethyl Alcohol A/P Assessment and plan (1) Alcoholic gastritis: Status: Acute (2) Gastroparalysis: Status: Acute (3) Hematemesis: Status: Acute (4) Delirium tremens: Status: Acute (5) Hyperlipidemia: Status: Chronic Comment: 08/07/2019 improved, LDL 124, recheck 1 year (6) Essential hypertension: Status: Chronic Comment: 06/24/2020 stable on lisinopril 20mg and amlodipine 10mg, encouraged healthy diet, exercise, follow-up 3 months (7) Leukocytosis: Status: Acute (8) Hyponatremia: Status: Acute (9) Hypokalemia: Status: Acute Narrative A/P Narrative: 1. Alcoholic gastroparalysis: Admit to inpatient med surg Clear liquid diet, advance as tolerated NS@75cc/hr Zofran IV PRN nausea vomiting Refrain from alcohol consumption 2. Hematemesis: DDx: gastritis from GERD vs Kelsea-Gupta tear from alcoholism Protonix IV BID Continue to monitor if hematemesis continue cbc w/ auto diff in the AM to trend H/H 3. Alcohol withdrawal/Delirium Tremens: CIWA protocol, measures to be provided for symptoms relief 4. Hyponatremia: Chronicity unknown NS@75cc/hr BMP q6hr, goal of correction 8-10 point in the first 24 hours, avoid overcorrection to avoid complications such as central pontine myelinolysis 5. Hypokalemia: Potassium IV replacement protocol Repeat BMP q6hr, repeat replacement as needed as per protocol 6. Essential HTN: Continue Amlodipine and Lisinopril 7. Leukocytosis: No foci of infection identified CXR no signs of aspiration pneumonitis or pneumonia UA no signs of UTI Likely secondary to stress from alcoholism; intractable nausea vomiting hematemesis Check lactic acid Blood culture Repeat cbc w/ auto diff in the morning to trend WBC Time Spent With Patient Time: Total time spent is greater than 50% in coordination of care (as documented) at patient's floor/unit and/or counseling patient: Total time spent with greater than 50% in coordination of care (as documented) at patient's floor/unit and/or counseling patient:: 15 - 24 minutes
[2020-07-04] MEDS ORDERED: ONDANSETRON 4 MG/2 ML VIAL IV PRN (13:45)
[2020-07-04] MEDS ORDERED: POTASSIUM CHLORIDE 20 MEQ, MAGNESIUM SULFATE 16.24 MEQ, THIAMINE 100 MG, MVI, ADULT NO.... IV SCH (13:45)
[2020-07-04] MEDS ORDERED: amLODIPine 10 MG TABLET PO SCH (13:45)
[2020-07-04] MEDS: 0.9 % SODIUM CHLORIDE 10 ML SYRINGE IV SCH ×2 (14:14→20:24)
[2020-07-04] MEDS: 0.9 % SODIUM CHLORIDE 1,000 ML IV SCH (16:18)
[2020-07-04] MEDS: PANTOPRAZOLE 40 MG VIAL IV SCH (17:05)
[2020-07-04 17:15] LABS: Blood Urea Nitrogen 17 mg/dL (6-20); Calcium 7.5 mg/dL (8.6-10.4); Carbon Dioxide 24 mmol/L (22-30); Chloride 93 mmol/L (96-108); Glomerular Filtration Rate 110; Glucose 99 mg/dL (70-105)
[2020-07-04] MEDS: traZODone HCL 50 MG TABLET PO PRN (20:22)
[2020-07-04] MEDS: MONTELUKAST 10 MG TABLET PO SCH (20:22)
[2020-07-04] MEDS: IBUPROFEN 600 MG TABLET PO PRN (20:22)
[2020-07-04] MEDS: DOCUSATE SODIUM 100 MG CAPSULE PO SCH (20:23)
[2020-07-04] MEDS: PREGABALIN 25 MG CAPSULE PO SCH (20:23)
[2020-07-04] MEDS: AMITRIPTYLINE 25 MG TABLET PO SCH (20:23)
[2020-07-04] MEDS: FLUTICASONE/SALMETEROL 500/50 INHALER #14 INH SCH (20:24)
[2020-07-04] MEDS: SENNOSIDES 1 TABLET PO SCH (20:24)
[2020-07-04] MEDS ORDERED: MONTELUKAST 10 MG TABLET PO SCH (21:00)
[2020-07-04] MEDS ORDERED: FLUTICASONE/SALMETEROL 500/50 INHALER #14 INH SCH (21:00)
[2020-07-04] MEDS ORDERED: PREGABALIN 25 MG CAPSULE PO SCH (21:00)
[2020-07-04 22:05] LABS: Blood Urea Nitrogen 15 mg/dL (6-20); Calcium 7.4 mg/dL (8.6-10.4); Carbon Dioxide 24 mmol/L (22-30); Chloride 94 mmol/L (96-108); Glomerular Filtration Rate 117; Glucose 105 mg/dL (70-105)
[2020-07-04] MEDS ORDERED: POTASSIUM CHLORIDE 20 MEQ in DEXTROSE 5% IN WATER 250 ML IV ONE (22:35)
[2020-07-04] MEDS: oxyCODONE HCL 5 MG TABLET PO PRN (23:06)
[2020-07-04] MEDS: hydrOXYzine 25 MG TABLET PO PRN (23:07)
[2020-07-05] MEDS: 0.9 % SODIUM CHLORIDE 1,000 ML IV SCH ×3 (01:09→17:15)
[2020-07-05] MEDS: 0.9 % SODIUM CHLORIDE 10 ML SYRINGE IV SCH ×3 (04:04→20:45)
[2020-07-05] MEDS: PANTOPRAZOLE 40 MG VIAL IV SCH ×2 (07:03→17:13)
[2020-07-05] MEDS ORDERED: OMEPRAZOLE 20 MG CAPSULE PO SCH (07:30)
--- NOTE | 2020-07-05 08:22 | Internal Med Progress Note ---
SUBJECTIVE Subjective Patient information: Note initiated : 07/05/20 at 8:20 am Service Date, if different from initiated Date: [] Patient: Emanuel Beyer 50 y/o M admitted on 07/04/20 for Fall. Chief Complaint: [Nausea vomiting epigastric abdominal pain] Overnight: not able to tolerate any oral intake. Subjective: Still c/o nausea vomiting and moderate epigastric pain. Also c/o anxiety. Constitutional Vitals: Vital Signs Temp Pulse Resp BP Pulse Ox 36.5 C 110 H 18 158/76 96 07/05/20 08:00 07/05/20 08:00 07/05/20 08:00 07/05/20 08:00 07/05/20 08:00 Period Temp Pulse Resp BP Sys/Goodman Pulse Ox Last 24 Hr 36.5 C-37.2 C 98-122 16-20 119-158/64-99 96-100 Intake and Output 07/04/20 07/05/20 07/05/20 21:59 05:59 13:59 Intake Total 2225 2260 Output Total 550 Balance 2225 1710 Weight 72.439 kg Intake & Output: Intake & Output 07/04/20 07/05/20 07/05/20 21:59 05:59 13:59 Intake Total 2225 2260 Output Total 550 Balance 2225 1710 Weight 72.439 kg Intake: IV 1025 260 Potassium Chloride 20 Meq In 260 Dextrose 5% in Water 250 ml @ 130 mls/hr IV ONCE ONE Rx#: [id number] Potassium Chloride 20 Meq 1025 Magnesium Sulfate 16.24 Meq Vitamin B1 100 mg Infuvite Adult 10 ml In Sodium Chloride 0.9% 1,000 ml @ 500 mls/hr IV . Q2H3M [facility] Rx#:[id number] Oral 1200 2000 Output: Void Amount 550 Other: Urine Appearance Clear Urine Color Bright Yellow Urine Odor Normal Stool Size Large Stool Color Brown Stool Consistency Liquid Watery # Voids 1 1 1 # Bowel Movements 1 # of times incontinent of 1 Bowels General appearance: cooperative and no acute distress Head Head exam: Present atraumatic and normocephalic Eye Eye exam: Present EOMI and PERRL ENT ENT exam: Present mucous membranes moist, normal exam and normal external ear exam Neck Neck exam: Present normal inspection; Absent lymphadenopathy, tenderness and thyromegaly Respiratory Respiratory exam: Absent accessory muscle use, respiratory distress and wheezes Cardiovascular Cardiovascular exam: Present normal rate and rhythm; Absent JVD GI/Abdominal GI/Abdominal exam: Present normal bowel sounds and soft; Absent organomegaly and tenderness Rectal Rectal exam: Present deferred Extremities Exam Extremities exam: Present full ROM, normal capillary refill and normal inspection; Absent tenderness Neurological Exam Neurological exam: Present alert, CN II-XII intact and oriented X3; Absent motor sensory deficit Psychiatric Psychiatric exam: Present normal affect and normal mood; Absent anxious and depressed Skin Skin exam: Present dry and intact OBJ DATA Labs CBC & Chem 7: 07/04/20 06:12 07/04/20 19:55 Labs: Abnormal Lab Results 07/04/20 07/04/20 07/04/20 19:55 15:15 09:31 WBC RBC Hgb Hct MCHC Neut % (Auto) Lymph % (Auto) Lymph # (Auto) [place] # (Auto) Absolute Neutrophils Sodium 125 L 127 L Potassium 2.8 L* 3.0 L Chloride 94 L 93 L Anion Gap 7.0 L BUN Creatinine 0.6 L Glucose Calcium 7.4 L 7.5 L AST ALT Urine Appearance Hazy A Urine Protein 100 A Urine Ketones 20 A Urine Urobilinogen 2.0 A Hyaline Casts 13 H Urine Mucus Mod A Urine Sperm Present A 07/04/20 07/04/20 06:12 06:12 WBC 22.5 H RBC 4.04 L Hgb 13.3 L Hct 35.5 L MCHC 37.5 H Neut % (Auto) 88.2 H Lymph % (Auto) 5.4 L Lymph # (Auto) 1.22 L [place] # (Auto) 1.41 H Absolute Neutrophils 19.81 H Sodium 123 L Potassium 3.0 L Chloride 81 L Anion Gap BUN 25 H Creatinine Glucose 174 H Calcium AST 72 H ALT 76 H Urine Appearance Urine Protein Urine Ketones Urine Urobilinogen Hyaline Casts Urine Mucus Urine Sperm Meds: Medications Albuterol Sulfate (Albuterol Sulfate 200 Puff Inhaler) 2 puff INH Q6HP PRN PRN Reason: shortness of breath Amitriptyline HCl (Amitriptyline 25 Mg Tablet) 100 mg PO HS [facility] Last Admin: 07/04/20 20:23 Dose: 100 mg Documented by: Amlodipine Besylate (Amlodipine 10 Mg Tablet) 10 mg PO DAILY [facility] Docusate Sodium (Docusate Sodium 100 Mg Capsule) 100 mg PO BID [facility] Last Admin: 07/04/20 20:23 Dose: Not Given Documented by: Duloxetine HCl (Duloxetine 30 Mg Capsule) 60 mg PO QDAY [facility] Hydroxyzine HCl (Hydroxyzine 25 Mg Tablet) 0 mg PO Q4HP PRN PRN Reason: Anxiety/Agitation Last Admin: 07/04/20 23:07 Dose: 25 mg Documented by: Sodium Chloride (Sodium Chloride 0.9%) 1,000 mls @ 75 mls/hr IV .[id number] [facility] Last Admin: 07/05/20 01:09 Dose: Not Given Documented by: Ibuprofen (Ibuprofen 600 Mg Tablet) 600 mg PO QIDP PRN; Protocol PRN Reason: Per Pain Protocol/Fever > 101 Last Admin: 07/04/20 20:22 Dose: 600 mg Documented by: Lorazepam (Lorazepam 1 Mg Tablet) 2 mg PO Q2HP PRN PRN Reason: CIWA-A >6 or HR >100 Meloxicam (Meloxicam 7.5 Mg Tablet) 15 mg PO QDAY [facility] Methocarbamol (Methocarbamol 750 Mg Tablet) 750 mg PO HSP PRN PRN Reason: muscle spasm Montelukast Sodium (Montelukast 10 Mg Tablet) 10 mg PO QHS [facility] Last Admin: 07/04/20 20:22 Dose: 10 mg Documented by: Morphine Sulfate (Morphine 2 Mg/Ml Vial) 2 mg IV Q4HP PRN; Protocol PRN Reason: Per Pain Protocol Ondansetron HCl (Ondansetron 4 Mg/2 Ml Vial) 4 mg IV Q6HP PRN PRN Reason: Nausea And Vomiting Oxycodone HCl (Oxycodone Hcl 5 Mg Tablet) 5 mg PO Q4HP PRN; Protocol PRN Reason: Per Pain Protocol Last Admin: 07/04/20 23:06 Dose: 5 mg Documented by: Pantoprazole Sodium (Pantoprazole 40 Mg Vial) [facility] Last Admin: 07/05/20 07:03 Dose: 40 mg Documented by: Pregabalin (Pregabalin 25 Mg Capsule) 50 mg PO BID [facility] Last Admin: 07/04/20 20:23 Dose: 50 mg Documented by: Fluticasone/Salmeterol (Fluticasone/Salmeterol 500/50 Inhaler #14) 1 puff INH BID [facility] Last Admin: 07/04/20 20:24 Dose: Not Given Documented by: Senna (Sennosides 1 Tablet) 2 tab PO HS [facility] Last Admin: 07/04/20 20:24 Dose: Not Given Documented by: Sodium Chloride (0.9 % Sodium Chloride 10 Ml Syringe) 10 ml IV Q8 [facility] Last Admin: 07/05/20 04:04 Dose: Not Given Documented by: Trazodone HCl (Trazodone Hcl 50 Mg Tablet) 25 mg PO HSP PRN PRN Reason: Insomnia Last Admin: 07/04/20 20:22 Dose: 25 mg Documented by: A/P Assessment and plan (1) Alcoholic gastritis: Status: Acute (2) Gastroparalysis: Status: Acute (3) Hematemesis: Status: Acute (4) Delirium tremens: Status: Acute (5) Hyperlipidemia: Status: Chronic Comment: 08/07/2019 improved, LDL 124, recheck 1 year (6) Essential hypertension: Status: Chronic Comment: 06/24/2020 stable on lisinopril 20mg and amlodipine 10mg, encouraged healthy diet, exercise, follow-up 3 months (7) Leukocytosis: Status: Acute (8) Hyponatremia: Status: Acute (9) Hypokalemia: Status: Acute Narrative A/P Narrative: 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 Hematemesis: DDx: gastritis from GERD vs Kelsea-Gupta tear from alcoholism Protonix IV BID Continue to monitor if hematemesis continue cbc w/ auto diff in the AM to trend H/H 3. Alcohol withdrawal/Delirium Tremens: CIWA protocol, measures to be provided for symptoms relief 4. Hyponatremia: Chronicity unknown NS@75cc/hr BMP q6hr, goal of correction 8-10 point in the first 24 hours, avoid overcorrection to avoid complications such as central pontine myelinolysis 5. Hypokalemia: Potassium IV replacement protocol Repeat BMP q6hr, repeat replacement as needed as per protocol 6. Essential HTN: Continue Amlodipine and Lisinopril 7. Leukocytosis: No foci of infection identified CXR no signs of aspiration pneumonitis or pneumonia UA no signs of UTI Likely secondary to stress from alcoholism; intractable nausea vomiting hematemesis Check lactic acid Blood culture Repeat cbc w/ auto diff in the morning to trend WBC Time Spent With Patient Time: Total time spent is greater than 50% in coordination of care (as documented) at patient's floor/unit and/or counseling patient: QUALITY VTE Deep Vein Thrombosis/Pulmonary Embolism Present on Admission: No
[2020-07-05] MEDS ORDERED: MELOXICAM 7.5 MG TABLET PO SCH (09:00)
[2020-07-05] MEDS ORDERED: amLODIPine 10 MG TABLET PO SCH (09:00)
[2020-07-05] MEDS ORDERED: DULoxetine 30 MG CAPSULE PO SCH (09:00)
[2020-07-05] MEDS ORDERED: LISINOPRIL 10 MG TABLET PO SCH (09:00)
[2020-07-05 09:08] LABS: Basophils # (Auto) 0.02 K/mcL (0.00-0.20); Basophils % (Auto) 0.1 % (0.0-2.0); Eosinophils # (Auto) 0.02 K/mcL (0.00-0.70); Eosinophils % (Auto) 0.1 % (0.0-7.0); Hematocrit 25.4 % (41.0-55.0); Hemoglobin 9.3 g/dL (13.5-16.5); Lymphocytes # (Auto) 1.96 K/mcL (1.50-4.80); Lymphocytes % (Auto) 13.4 % (15.0-49.0); Mean Cell Volume 90.4 fL (80.0-100.0); Mean Corpuscular HGB Conc 36.6 g/dL (31.0-36.0); Mean Platelet Volume 9.8 fL (7.4-10.4); Monocytes # (Auto) 1.43 K/mcL (0.10-0.90); Monocytes % (Auto) 9.8 % (1.0-12.0); Neutrophils % (Auto) 76.6 % (38.0-78.0); Platelet Count 187 K/mcL (140-440); RBC 2.81 M/mcL (4.50-5.90); Red Cell Distribution Width 12.1 % (11.5-14.5); WBC 14.6 K/mcL (4.5-11.0)
[2020-07-05] MEDS: amLODIPine 10 MG TABLET PO SCH (09:08)
[2020-07-05] MEDS: DULoxetine 30 MG CAPSULE PO SCH (09:09)
[2020-07-05] MEDS: MELOXICAM 7.5 MG TABLET PO SCH (09:11)
[2020-07-05] MEDS: FLUTICASONE/SALMETEROL 500/50 INHALER #14 INH SCH ×2 (09:12→20:44)
[2020-07-05] MEDS: DOCUSATE SODIUM 100 MG CAPSULE PO SCH ×2 (09:12→20:45)
[2020-07-05] MEDS: PREGABALIN 25 MG CAPSULE PO SCH ×2 (09:16→20:44)
[2020-07-05 09:40] LABS: ALT/SGPT 59 U/L (<40); AST/SGOT 60 U/L (<40); Albumin 3.4 gm/dL (3.2-5.2); Albumin/Globulin Ratio 1.4 (1.0-2.3); Alkaline Phosphatase 72 U/L (39-117); Bilirubin,Total 0.5 mg/dL (0.1-1.0); Blood Urea Nitrogen 9 mg/dL (6-20); Calcium 7.5 mg/dL (8.6-10.4); Carbon Dioxide 25 mmol/L (22-30); Chloride 99 mmol/L (96-108); Globulin 2.5 gm/dL (2.2-3.7); Glomerular Filtration Rate 117; Glucose 91 mg/dL (70-105)
[2020-07-05] MEDS ORDERED: POTASSIUM CHLORIDE 20 MEQ in DEXTROSE 5% IN WATER 250 ML IV ONE (09:51)
[2020-07-05] MEDS: morphine 2 MG/ML VIAL IV PRN (15:10)
[2020-07-05] MEDS ORDERED: POTASSIUM CHLORIDE 20 MEQ TABLET PO ONE (17:28)
--- NOTE | 2020-07-05 17:29 | Internal Med Progress Note ---
SUBJECTIVE Subjective Patient information: Note initiated : 07/05/20 at 5:19 pm Service Date, if different from initiated Date: [] Patient: Emanuel Beyer 50 y/o M admitted on 07/04/20 for Fall. Chief Complaint: [] Interval history: 07/05 Overnight: not able to tolerate any oral intake. Subjective: Still c/o nausea vomiting and moderate epigastric pain. Also c/o anxiety. 07/06 Constitutional Vitals: Vital Signs Temp Pulse Resp BP Pulse Ox 97.6 F 88 18 144/75 98 07/05/20 16:00 07/05/20 16:00 07/05/20 16:00 07/05/20 16:00 07/05/20 16:00 Period Temp Pulse Resp BP Sys/Goodman Pulse Ox Last 24 Hr 97.5 F-98.9 F 88-114 16-22 119-158/67-84 96-98 Intake and Output 07/05/20 07/05/20 07/05/20 05:59 13:59 21:59 Intake Total 3260 1540 Output Total 550 Balance 2710 1540 Weight 72.439 kg Patient Weight 07/06/20 05:59 Weight 72.439 kg Intake & Output: Intake & Output 07/05/20 07/05/20 07/05/20 05:59 13:59 21:59 Intake Total 3260 1540 Output Total 550 Balance 2710 1540 Weight 72.439 kg Intake: IV 1260 260 Sodium Chloride 0.9% 1,000 ml @ 1000 75 mls/hr [id number] [facility] Rx#: [id number] Potassium Chloride 20 Meq In 260 260 Dextrose 5% in Water 250 ml @ 130 mls/hr IV ONCE ONE Rx#: [id number] Oral 2000 1280 Output: Void Amount 550 Other: Meal Dinner Percent of Meal Consumed 100% Feeding Ability Independent Urine Appearance Clear Urine Color Bright Yellow Urine Odor Normal # Voids 1 2 Exam: General: Alert, Awake, No acute Distress Eyes/N/T: EOMI, Head/Neck: neck supple, CV: RRR, No murmurs, Pulm: Clear b/l, no wheezing/rhonchi/rales Abd: soft, nontender, +BS x4 Ext: no clubbing/cyanosis/edema Neuro: Alert, no focal deficits, moves all extremities, Skin: warm/dry OBJ DATA Labs CBC & Chem 7: 07/05/20 06:11 07/05/20 06:11 Labs: Abnormal Lab Results 07/05/20 07/05/20 07/04/20 06:11 06:11 19:55 WBC 14.6 H RBC 2.81 L Hgb 9.3 L Hct 25.4 L MCHC 36.6 H Neut % (Auto) Lymph % (Auto) 13.4 L Lymph # (Auto) [place] # (Auto) 1.43 H Absolute Neutrophils 11.15 H Sodium 131 L 125 L Potassium 2.8 L* 2.8 L* Chloride 94 L Anion Gap 7.0 L 7.0 L BUN Creatinine 0.6 L 0.6 L Glucose Calcium 7.5 L 7.4 L AST 60 H ALT 59 H Urine Appearance Urine Protein Urine Ketones Urine Urobilinogen Hyaline Casts Urine Mucus Urine Sperm 07/04/20 07/04/20 07/04/20 15:15 09:31 06:12 WBC RBC Hgb Hct MCHC Neut % (Auto) Lymph % (Auto) Lymph # (Auto) [place] # (Auto) Absolute Neutrophils Sodium 127 L 123 L Potassium 3.0 L 3.0 L Chloride 93 L 81 L Anion Gap BUN 25 H Creatinine Glucose 174 H Calcium 7.5 L AST 72 H ALT 76 H Urine Appearance Hazy A Urine Protein 100 A Urine Ketones 20 A Urine Urobilinogen 2.0 A Hyaline Casts 13 H Urine Mucus Mod A Urine Sperm Present A 07/04/20 06:12 WBC 22.5 H RBC 4.04 L Hgb 13.3 L Hct 35.5 L MCHC 37.5 H Neut % (Auto) 88.2 H Lymph % (Auto) 5.4 L Lymph # (Auto) 1.22 L [place] # (Auto) 1.41 H Absolute Neutrophils 19.81 H Sodium Potassium Chloride Anion Gap BUN Creatinine Glucose Calcium AST ALT Urine Appearance Urine Protein Urine Ketones Urine Urobilinogen Hyaline Casts Urine Mucus Urine Sperm Meds: Medications Albuterol Sulfate (Albuterol Sulfate 200 Puff Inhaler) 2 puff INH Q6HP PRN PRN Reason: shortness of breath Amitriptyline HCl (Amitriptyline 25 Mg Tablet) 100 mg PO HS [facility] Last Admin: 07/04/20 20:23 Dose: 100 mg Documented by: Amlodipine Besylate (Amlodipine 10 Mg Tablet) 10 mg PO DAILY [facility] Last Admin: 07/05/20 09:08 Dose: 10 mg Documented by: Docusate Sodium (Docusate Sodium 100 Mg Capsule) 100 mg PO BID [facility] Last Admin: 07/05/20 09:12 Dose: Not Given Documented by: Duloxetine HCl (Duloxetine 30 Mg Capsule) 60 mg PO QDAY [facility] Last Admin: 07/05/20 09:09 Dose: 60 mg Documented by: Hydroxyzine HCl (Hydroxyzine 25 Mg Tablet) 0 mg PO Q4HP PRN PRN Reason: Anxiety/Agitation Last Admin: 07/04/20 23:07 Dose: 25 mg Documented by: Sodium Chloride (Sodium Chloride 0.9%) 1,000 mls @ 75 mls/hr IV .[id number] [facility] Last Admin: 07/05/20 17:15 Dose: Not Given Documented by: Ibuprofen (Ibuprofen 600 Mg Tablet) 600 mg PO QIDP PRN; Protocol PRN Reason: Per Pain Protocol/Fever > 101 Last Admin: 07/04/20 20:22 Dose: 600 mg Documented by: Lorazepam (Lorazepam 1 Mg Tablet) 2 mg PO Q2HP PRN PRN Reason: CIWA-A >6 or HR >100 Meloxicam (Meloxicam 7.5 Mg Tablet) 15 mg PO QDAY [facility] Last Admin: 07/05/20 09:11 Dose: 15 mg Documented by: Methocarbamol (Methocarbamol 750 Mg Tablet) 750 mg PO HSP PRN PRN Reason: muscle spasm Montelukast Sodium (Montelukast 10 Mg Tablet) 10 mg PO QHS [facility] Last Admin: 07/04/20 20:22 Dose: 10 mg Documented by: Morphine Sulfate (Morphine 2 Mg/Ml Vial) 2 mg IV Q4HP PRN; Protocol PRN Reason: Per Pain Protocol Last Admin: 07/05/20 15:10 Dose: 2 mg Documented by: Ondansetron HCl (Ondansetron 4 Mg/2 Ml Vial) 4 mg IV Q6HP PRN PRN Reason: Nausea And Vomiting Oxycodone HCl (Oxycodone Hcl 5 Mg Tablet) 5 mg PO Q4HP PRN; Protocol PRN Reason: Per Pain Protocol Last Admin: 07/04/20 23:06 Dose: 5 mg Documented by: Pantoprazole Sodium (Pantoprazole 40 Mg Vial) 40 mg IV BIDAC [facility] Last Admin: 07/05/20 17:13 Dose: 40 mg Documented by: Pregabalin (Pregabalin 25 Mg Capsule) 50 mg PO BID [facility] Last Admin: 07/05/20 09:16 Dose: Not Given Documented by: Fluticasone/Salmeterol (Fluticasone/Salmeterol 500/50 Inhaler #14) 1 puff INH BID [facility] Last Admin: 07/05/20 09:12 Dose: Not Given Documented by: Senna (Sennosides 1 Tablet) 2 tab PO HS [facility] Last Admin: 07/04/20 20:24 Dose: Not Given Documented by: Sodium Chloride (0.9 % Sodium Chloride 10 Ml Syringe) 10 ml IV Q8 [facility] Last Admin: 07/05/20 13:46 Dose: Not Given Documented by: Trazodone HCl (Trazodone Hcl 50 Mg Tablet) 25 mg PO HSP PRN PRN Reason: Insomnia Last Admin: 07/04/20 20:22 Dose: 25 mg Documented by: A/P Narrative A/P Narrative: A: *Alcoholic gastroparalysis: *Alcohol withdrawal: improved *Hematemesis: DDx: gastritis from GERD vs Kelsea-Gupta tear from alcoholism - *Hyponatremia, Chronicity unknown: *Hypokalemia: *Essential HTN: *Leukocytosis: -No foci of infection identified, CXR no signs of aspiration pneumonitis or pneumonia, UA no signs of UTI -Likely secondary to stress from alcoholism; intractable nausea vomiting hematemesis -Blood culture negative *Depression/Anxiety: *COPD *GERD: P: -Clear liquid diet, advance as tolerated -Protonix BID -monitor if hematemesis continue -[facility] protocol -Continue Amlodipine/Lisinopril -cont home IH's -Refrain from alcohol consumption -pt/ot -ppx: Time Spent With Patient Time: Total time spent is greater than 50% in coordination of care (as docu mented) at patient's floor/unit and/or counseling patient: QUALITY VTE Deep Vein Thrombosis/Pulmonary Embolism Present on Admission: No
[2020-07-05] MEDS: traZODone HCL 50 MG TABLET PO PRN (20:43)
[2020-07-05] MEDS: MONTELUKAST 10 MG TABLET PO SCH (20:44)
[2020-07-05] MEDS: hydrOXYzine 25 MG TABLET PO PRN (20:44)
[2020-07-05] MEDS: AMITRIPTYLINE 25 MG TABLET PO SCH (20:44)
[2020-07-05] MEDS: SENNOSIDES 1 TABLET PO SCH (20:45)
[2020-07-06] MEDS: 0.9 % SODIUM CHLORIDE 10 ML SYRINGE IV SCH ×3 (05:02→20:38)
[2020-07-06 07:47] LABS: Hematocrit 28.8 % (41.0-55.0); Hemoglobin 10.2 g/dL (13.5-16.5); Mean Cell Volume 92.3 fL (80.0-100.0); Mean Corpuscular HGB Conc 35.4 g/dL (31.0-36.0); Mean Platelet Volume 9.3 fL (7.4-10.4); Platelet Count 214 K/mcL (140-440); RBC 3.12 M/mcL (4.50-5.90); Red Cell Distribution Width 12.5 % (11.5-14.5); WBC 10.6 K/mcL (4.5-11.0)
--- NOTE | 2020-07-06 07:56 | Internal Med Progress Note ---
SUBJECTIVE Subjective Patient information: Note initiated : 07/06/20 at 7:51 am Service Date, if different from initiated Date: [] Patient: Emanuel Beyer 50 y/o M admitted on 07/04/20 for Fall. Chief Complaint: [] Interval history: 07/05 Overnight: not able to tolerate any oral intake. Subjective: Still c/o nausea vomiting and moderate epigastric pain. Also c/o anxiety. 07/06 Feeling better. No nausea vomiting hematemesis. Tolerating clear liquids well. Denies any withdrawal feelings. Review of Systems: denies headache/fever/chills/nausea/vomiting/chest or abdominal pain/cough/dyspnea/diarrhea. Otherwise see above. Constitutional Vitals: Vital Signs Temp Pulse Resp BP Pulse Ox 98.3 F 111 H 16 142/88 98 07/06/20 07:38 07/06/20 07:38 07/06/20 07:38 07/06/20 07:38 07/06/20 07:38 Period Temp Pulse Resp BP Sys/Goodman Pulse Ox Last 24 Hr 97.5 F-99.8 F 88-111 15-22 116-158/67-88 96-100 Intake and Output 07/05/20 07/06/20 07/06/20 21:59 05:59 13:59 Intake Total 1740 1000 Balance 1740 1000 Weight 73.567 kg Intake & Output: Intake & Output 07/05/20 07/06/20 07/06/20 21:59 05:59 13:59 Intake Total 1740 1000 Balance 1740 1000 Weight 73.567 kg Intake: IV 460 Sodium Chloride 0.9% 1,000 ml @ 200 75 mls/hr IV .[id number] [facility] Rx#: [id number] Potassium Chloride 20 Meq In 260 Dextrose 5% in Water 250 ml @ 130 mls/hr IV ONCE ONE Rx#: [id number] Oral 1280 1000 Other: Meal Dinner Percent of Meal Consumed 100% Feeding Ability Independent Stool Size Small Stool Color Black Stool Consistency Soft # Voids 1 # Bowel Movements 1 Exam: General: Alert, Awake, No acute Distress Eyes/N/T: EOMI, Head/Neck: neck supple, CV: RRR, No murmurs, Pulm: Clear b/l, no wheezing/rhonchi/rales Abd: soft, nontender, +BS x4 Ext: no clubbing/cyanosis/edema Neuro: Alert, no focal deficits, moves all extremities, Skin: warm/dry Head Head exam: Present atraumatic and normal inspection Eye Eye exam: Present normal appearance ENT ENT exam: Present mucous membranes moist, normal exam and normal external ear exam Neck Neck exam: Present normal inspection Respiratory Respiratory exam: Present normal respiratory exam Cardiovascular Cardiovascular exam: Present normal rate and rhythm GI/Abdominal GI/Abdominal exam: Present normal bowel sounds Back Exam Back exam: Present normal inspection Neurological Exam Neurological exam: Present alert and oriented X3 Skin Skin exam: Present intact and warm OBJ DATA Labs CBC & Chem 7: 07/06/20 06:35 07/06/20 06:35 Labs: Abnormal Lab Results 07/06/20 07/05/20 07/05/20 06:35 06:11 06:11 WBC 14.6 H RBC 3.12 L 2.81 L Hgb 10.2 L 9.3 L Hct 28.8 L 25.4 L MCHC 36.6 H Neut % (Auto) Lymph % (Auto) 13.4 L Lymph # (Auto) [place] # (Auto) 1.43 H Absolute Neutrophils 11.15 H Sodium 131 L Potassium 2.8 L* Chloride Anion Gap 7.0 L BUN Creatinine 0.6 L Glucose Calcium 7.5 L AST 60 H ALT 59 H Urine Appearance Urine Protein Urine Ketones Urine Urobilinogen Hyaline Casts Urine Mucus Urine Sperm 07/04/20 07/04/20 07/04/20 19:55 15:15 09:31 WBC RBC Hgb Hct MCHC Neut % (Auto) Lymph % (Auto) Lymph # (Auto) [place] # (Auto) Absolute Neutrophils Sodium 125 L 127 L Potassium 2.8 L* 3.0 L Chloride 94 L 93 L Anion Gap 7.0 L BUN Creatinine 0.6 L Glucose Calcium 7.4 L 7.5 L AST ALT Urine Appearance Hazy A Urine Protein 100 A Urine Ketones 20 A Urine Urobilinogen 2.0 A Hyaline Casts 13 H Urine Mucus Mod A Urine Sperm Present A 07/04/20 07/04/20 06:12 06:12 WBC 22.5 H RBC 4.04 L Hgb 13.3 L Hct 35.5 L MCHC 37.5 H Neut % (Auto) 88.2 H Lymph % (Auto) 5.4 L Lymph # (Auto) 1.22 L [place] # (Auto) 1.41 H Absolute Neutrophils 19.81 H Sodium 123 L Potassium 3.0 L Chloride 81 L Anion Gap BUN 25 H Creatinine Glucose 174 H Calcium AST 72 H ALT 76 H Urine Appearance Urine Protein Urine Ketones Urine Urobilinogen Hyaline Casts Urine Mucus Urine Sperm Meds: Medications Albuterol Sulfate (Albuterol Sulfate 200 Puff Inhaler) 2 puff INH Q6HP PRN PRN Reason: shortness of breath Amitriptyline HCl (Amitriptyline 25 Mg Tablet) 100 mg PO [facility] Last Admin: 07/05/20 20:44 Dose: 100 mg Documented by: Amlodipine Besylate (Amlodipine 10 Mg Tablet) 10 mg PO DAILY [facility] Last Admin: 07/05/20 09:08 Dose: 10 mg Documented by: Diphenhydramine HCl (Diphenhydramine 50 Mg/Ml Vial) 25 mg IV Q4-6HP PRN PRN Reason: Nausea Docusate Sodium (Docusate Sodium 100 Mg Capsule) 100 mg PO BID [facility] Last Admin: 07/05/20 20:45 Dose: Not Given Documented by: Duloxetine HCl (Duloxetine 30 Mg Capsule) 60 mg PO QDAY [facility] Last Admin: 07/05/20 09:09 Dose: 60 mg Documented by: Hydroxyzine HCl (Hydroxyzine 25 Mg Tablet) 0 mg PO Q4HP PRN PRN Reason: Anxiety/Agitation Last Admin: 07/05/20 20:44 Dose: 50 mg Documented by: Ibuprofen (Ibuprofen 600 Mg Tablet) 600 mg PO QIDP PRN; Protocol PRN Reason: Per Pain Protocol/Fever > 101 Last Admin: 07/04/20 20:22 Dose: 600 mg Documented by: Lorazepam (Lorazepam 1 Mg Tablet) 2 mg PO Q2HP PRN PRN Reason: CIWA-A >6 or HR >100 Meloxicam (Meloxicam 7.5 Mg Tablet) 15 mg PO QDAY [facility] Last Admin: 07/05/20 09:11 Dose: 15 mg Documented by: Methocarbamol (Methocarbamol 750 Mg Tablet) 750 mg PO HSP PRN PRN Reason: muscle spasm Montelukast Sodium (Montelukast 10 Mg Tablet) 10 mg PO QHS [facility] Last Admin: 07/05/20 20:44 Dose: 10 mg Documented by: Morphine Sulfate (Morphine 2 Mg/Ml Vial) 2 mg IV Q4HP PRN; Protocol PRN Reason: Per Pain Protocol Last Admin: 07/05/20 15:10 Dose: 2 mg Documented by: Ondansetron HCl (Ondansetron 4 Mg/2 Ml Vial) 4 mg IV Q6HP PRN PRN Reason: Nausea And Vomiting Oxycodone HCl (Oxycodone Hcl 5 Mg Tablet) 5 mg PO Q4HP PRN; Protocol PRN Reason: Per Pain Protocol Last Admin: 07/04/20 23:06 Dose: 5 mg Documented by: Pantoprazole Sodium (Pantoprazole 40 Mg Vial) 40 mg IV BIDAC [facility] Last Admin: 07/05/20 17:13 Dose: 40 mg Documented by: Pregabalin (Pregabalin 25 Mg Capsule) 50 mg PO BID [facility] Last Admin: 07/05/20 20:44 Dose: 50 mg Documented by: Fluticasone/Salmeterol (Fluticasone/Salmeterol 500/50 Inhaler #14) 1 puff INH BID [facility] Last Admin: 07/05/20 20:44 Dose: Not Given Documented by: Senna (Sennosides 1 Tablet) 2 tab PO HS [facility] Last Admin: 07/05/20 20:45 Dose: Not Given Documented by: Sodium Chloride (0.9 % Sodium Chloride 10 Ml Syringe) 10 ml IV Q8 [facility] Last Admin: 07/06/20 05:02 Dose: 10 ml Documented by: Trazodone HCl (Trazodone Hcl 50 Mg Tablet) 25 mg PO HSP PRN PRN Reason: Insomnia Last Admin: 07/05/20 20:43 Dose: 25 mg Documented by: A/P Narrative A/P Narrative: A: *Alcoholic gastroparalysis: improving *Alcohol withdrawal: improved *N/V/?Hematemesis: DDx: gastritis from GERD vs Kelsea-Gupta tear from alcoholism -none since admit *Hyponatremia, Chronicity unknown: improved *Hypokalemia: improved *Essential HTN: *Leukocytosis: REsolved, likely reactive -No foci of infection identified, CXR no signs of aspiration pneumonitis or pneumonia, UA no signs of UTI -Likely secondary to stress from alcoholism; intractable nausea vomiting hematemesis -Blood culture negative *Depression/Anxiety: *COPD *GERD: P: -full liquid diet, advance as tolerated -Protonix BID -monitor if hematemesis continue -CIWA protocol -Continue Amlodipine/Lisinopril -cont home IH's -Refrain from alcohol consumption -pt/ot -ppx: SCD Time Spent With Patient Time: Total time spent is greater than 50% in coordination of care (as documented) at patient's floor/unit and/or counseling patient: QUALITY VTE Deep Vein Thrombosis/Pulmonary Embolism Present on Admission: No
[2020-07-06 08:08] LABS: ALT/SGPT 61 U/L (<40); AST/SGOT 48 U/L (<40); Albumin 3.7 gm/dL (3.2-5.2); Albumin/Globulin Ratio 1.3 (1.0-2.3); Alkaline Phosphatase 71 U/L (39-117); Bilirubin,Direct 0.2 mg/dL (<0.3); Bilirubin,Total 0.6 mg/dL (0.1-1.0); Blood Urea Nitrogen 6 mg/dL (6-20); Calcium 8.3 mg/dL (8.6-10.4); Carbon Dioxide 25 mmol/L (22-30); Chloride 99 mmol/L (96-108); Globulin 2.8 gm/dL (2.2-3.7); Glomerular Filtration Rate 117; Glucose 106 mg/dL (70-105); Lactate Dehydrogenase 411 U/L (135-225); Phosphorous 2.3 mg/dL (2.5-4.5); Triglycerides 72 mg/dL (<150); Uric Acid 3.7 mg/dL (2.5-8.0)
--- NOTE | 2020-07-06 08:33 | XRay Report ---
HISTORY: Nausea and vomiting, recent fall FINDINGS: The bowel gas pattern is normal. No free intra-abdominal air is present. There is no apparent soft tissue mass. Dense calcifications are present in the vas deferens bilaterally. Vertically oriented radiolucent line overlies the left transverse process of L4. This is more likely artifact created by bowel rather than a nondisplaced fracture. No other fracture is seen. Mild arthritis is seen in the lumbar spine. IMPRESSION: Possible fracture of the left transverse process of L4. The exam is otherwise normal. Interpreted and Authenticated by: Andre Carrington 07/06/20
[2020-07-06 08:39] LABS: Anisocytosis 1+ (None Seen); Band Neutrophils % 6 % (0-10); Lymphocytes % 12 % (15-49); Monocytes % (Manual) 8 % (1-12); Platelet Estimate NORMAL (Normal); Polychromasia FEW (None Seen); RBC Morphology ABNORMAL (Normal); Reactive Lymphocytes 3 % (0-2); Segmented Neutrophils % 71 % (38-78)
[2020-07-06] MEDS: DULoxetine 30 MG CAPSULE PO SCH (09:14)
[2020-07-06] MEDS: PANTOPRAZOLE 40 MG TABLET PO SCH ×2 (09:14→16:51)
[2020-07-06] MEDS: MELOXICAM 7.5 MG TABLET PO SCH (09:16)
[2020-07-06] MEDS: amLODIPine 10 MG TABLET PO SCH (09:17)
[2020-07-06] MEDS: PREGABALIN 25 MG CAPSULE PO SCH ×2 (09:18→20:37)
[2020-07-06] MEDS: FLUTICASONE/SALMETEROL 500/50 INHALER #14 INH SCH ×2 (09:19→20:36)
[2020-07-06] MEDS: DOCUSATE SODIUM 100 MG CAPSULE PO SCH ×2 (09:19→20:36)
[2020-07-06] MEDS: PANTOPRAZOLE 40 MG VIAL IV SCH (09:20)
--- NOTE | 2020-07-06 13:16 | Discharge Summary ---
Discharge Provider Provider Patient information: Note initiated : 07/06/20 at 1:14 pm Service Date, if different from initiated Date: [] Patient: Emanuel Beyer 50 y/o M admitted on 07/04/20 for Fall. Chief Complaint: [] Date of admission: 07/04/20 12:56 Primary care physician: NAJMA Johnson Consults: 07/04/20 Consult to Physician [CONS] Stat Comment: Consulting Provider: Jerry Vernon Reason For Exam: Physician to Consult Discharge Meds Discharge Medications Home Medications promethazine 25 mg tablet 25 mg PO Q6H PRN #30 tab 01/25/17 [Rx Confirmed 07/04/20 Last Taken Unknown] bilat thumb spica splint #2 each 04/12/19 [Rx Confirmed 07/04/20 Last Taken Unknown] albuterol sulfate 90 mcg/actuation aerosol inhaler 90 mcg INHALATION Q6H PRN #18 g 08/07/19 [Rx Confirmed 07/04/20 Last Taken 06/29/20] fluticasone propionate 50 mcg/actuation nasal spray,suspension 1 spray INTRANASAL BID #16 g 08/07/19 [Rx Confirmed 07/04/20 Last Taken 06/27/20] lisinopril 20 mg tablet See Rx Instructions .ROUTE .COMPLEX #30 tab 11/21/19 [Rx Confirmed 07/04/20 Last Taken 06/27/20] lorazepam 1 mg tablet 1 mg PO ONCE PRN #2 tab 12/17/19 [Rx Confirmed 07/04/20 Last Taken Unknown] pregabalin 50 mg capsule 50 mg PO .COMPLEX #60 cap 01/15/20 [Rx Confirmed 07/04/20 Last Taken Unknown] fluticasone 500 mcg-salmeterol 50 mcg/dose blistr powdr for inhalation See Rx Instructions .ROUTE .COMPLEX #60 each 02/20/20 [Rx Confirmed 07/04/20 Last Taken 06/27/20] meloxicam 15 mg tablet 15 mg PO QDAY #30 tab 04/30/20 [Rx Confirmed 07/04/20 Last Taken 06/27/20] montelukast 10 mg tablet 10 mg PO QHS #90 tab 04/30/20 [Rx Confirmed 07/04/20 Last Taken Unknown] amitriptyline 100 mg tablet See Rx Instructions .ROUTE .COMPLEX #90 tab 05/08/20 [Rx Confirmed 07/04/20 Last Taken 06/27/20] amlodipine 10 mg tablet See Rx Instructions .ROUTE .COMPLEX #90 tab 05/20/20 [Rx Confirmed 07/04/20 Last Taken 06/27/20] methocarbamol 750 mg tablet 750 mg PO QHS PRN #30 tab 05/23/20 [Rx Confirmed 07/04/20 Last Taken 06/27/20] hydrocodone 7.5 mg-acetaminophen 325 mg tablet 1 tab PO QHS PRN #30 tab MDD 1 06/13/20 [Rx Confirmed 07/04/20 Last Taken 06/27/20] duloxetine 60 mg capsule,delayed release 60 mg PO QDAY #30 cap 06/24/20 [Rx Confirmed 07/04/20 Last Taken 06/27/20] pantoprazole 40 mg PO BIDAC #60 tab 07/06/20 [Rx Last Taken Unknown] COURSE Hospital Course Hospital course: History of present illness: Mr. Beyer is a 50 year old M h/o essential HTN, GERD, chronic alcoholism, alcoholic pancreatitis, p/w nausea, vomiting, hematemesis, and epigastric and periumbilical abdominal pain. Last prior similar episode was 1 month ago. He has been drinking heavily for years, typically drinks 36 cans of beer per day with last use 3 days ago. He has been having nausea, vomiting, hematemesis, and epigastric and periumbilical abdominal pain since stopped drinking. The pain is described as 8/10 in intensity, sharp, constant, no alleviating or exacerbating factors. Denies anxiety or diaphoresis or hand tremors. Unable to tolerating any food or drink since symptoms onset. Interval history: 07/05 Overnight: not able to tolerate any oral intake. Subjective: Still c/o nausea vomiting and moderate epigastric pain. Also c/o anxiety. 07/06 Feeling better. No nausea vomiting hematemesis. Tolerating clear liquids well. Denies any withdrawal feelings. A: *Alcoholic gastroparalysis: improving *Alcohol withdrawal: improved *N/V/?Hematemesis: DDx: gastritis from GERD vs Kelsea-Gupta tear from alcoholism -none since admit *Hyponatremia, Chronicity unknown: improved *Hypokalemia: improved *Essential HTN: *Leukocytosis: REsolved, likely reactive -No foci of infection identified, CXR no signs of aspiration pneumonitis or pneumonia, UA no signs of UTI -Likely secondary to stress from alcoholism; intractable nausea vomiting hematemesis -Blood culture negative *Depression/Anxiety: *COPD *GERD: Discharge diagnosis: Alcoholic gastric per lysis alcohol withdrawal nausea vomiting hyponatremia Secondary discharge diagnosis: Hypokalemia hypertension depression anxiety COPD GERD Time Spent with Patient Time attestation: Total time spent providing and/or coordinating discharge services: Time spent: Greater than 30 minutes EXAM Constitutional Vitals: Temp Pulse Resp BP Pulse Ox 98.6 F 104 H 18 123/66 98 07/06/20 11:43 07/06/20 11:43 07/06/20 11:43 07/06/20 11:43 07/06/20 11:43 Discharge Data Data Completed and Pending Labs on day of discharge: Labs from last 24 hours 07/06/20 07/06/20 06:35 06:35 WBC 10.6 RBC 3.12 L Hgb 10.2 L Hct 28.8 L MCV 92.3 MCH 32.7 MCHC 35.4 RDW 12.5 Plt Count 214 MPV 9.3 Seg Neutrophils % 71 Band Neutrophils % 6 Lymphocytes % 12 L Monocytes % (Manual) 8 Reactive Lymphocytes 3 H Platelet Estimate Normal RBC Morphology Abnormal A Polychromasia Few A Anisocytosis 1+ A Sodium 134 Potassium 3.5 Chloride 99 Carbon Dioxide 25 Anion Gap 10.0 BUN 6 Creatinine 0.6 L GFR Calculation 117 Glucose 106 H Uric Acid 3.7 Calcium 8.3 L Phosphorus 2.3 L Magnesium 2.5 Total Bilirubin 0.6 Direct Bilirubin 0.2 GGT 64 H AST 48 H ALT 61 H Alkaline Phosphatase 71 Lactate Dehydrogenase 411 H Total Protein 6.5 Albumin 3.7 Globulin 2.8 Albumin/Globulin Ratio 1.3 Triglycerides 72 Preliminary micro results at discharge 07/04/20 08:04 Blood Culture - Preliminary Blood 07/04/20 07:57 Blood Culture - Preliminary Blood Discharge Plan Patient/Caregiver Discharge Instructions Activity: increase activity as tolerated Diet: Regular Diet and Low Fat Prescriptions: New pantoprazole 40 mg Tablet,Delayed Release (Dr/Ec) 40 mg PO BIDAC Qty: 60 RF: 0 Continued (DME) bilat thumb spica splint medium Qty: 2 RF: 0 lisinopril 20 mg tablet See Rx Instructions .ROUTE .COMPLEX Qty: 30 RF: 8 lorazepam 1 mg tablet 1 mg PO ONCE PRN (Reason: anxiety) Qty: 2 RF: 0 fluticasone propion-salmeterol 500-50 mcg/dose blister with device See Rx Instructions .ROUTE .COMPLEX Qty: 60 RF: 0 montelukast 10 mg tablet 10 mg PO QHS Qty: 90 RF: 1 meloxicam 15 mg tablet 15 mg PO QDAY Qty: 30 RF: 0 amitriptyline 100 mg tablet See Rx Instructions .ROUTE .COMPLEX Qty: 90 RF: 0 amlodipine 10 mg tablet See Rx Instructions .ROUTE .COMPLEX Qty: 90 RF: 0 methocarbamol 750 mg tablet 750 mg PO QHS PRN (Reason: muscle spasm) Qty: 30 RF: 0 hydrocodone-acetaminophen 7.5-325 mg tablet 1 tab PO QHS MDD 1 PRN (Reason: pain) Qty: 30 RF: 0 fluticasone propionate [Flonase Allergy Relief] 50 mcg/actuation spray,suspension 1 spray Intranasal BID Qty: 16 RF: 11 albuterol sulfate 90 mcg/actuation HFA aerosol inhaler 90 mcg INHALATION Q6H PRN (Reason: shortness of breath) Qty: 18 RF: 2 pregabalin [Lyrica] 50 mg capsule 50 mg PO .COMPLEX Qty: 60 RF: 2 promethazine 25 mg tablet 25 mg PO Q6H PRN (Reason: nausea and vomiting) Qty: 30 RF: 0 duloxetine [Cymbalta] 60 mg capsule,delayed release(DR/EC) 60 mg PO QDAY Qty: 30 RF: 3 Discontinued omeprazole 40 mg capsule,delayed release(DR/EC) See Rx Instructions .ROUTE .COMPLEX Qty: 30 RF: 9 Follow Up Plan Follow up with: Britany Chow ARNP [Primary Care Provider] - Patient Disposition: Home, Self-Care Prognosis: Fair Rehab Potential: Fair Overall status at discharge: patient is progressing back to baseline QUALITY VTE Deep Vein Thrombosis/Pulmonary Embolism Present on Admission: No
[2020-07-06] MEDS: oxyCODONE HCL 5 MG TABLET PO PRN (16:44)
[2020-07-06] MEDS: IBUPROFEN 600 MG TABLET PO PRN (16:51)
[2020-07-06] MEDS: AMITRIPTYLINE 25 MG TABLET PO SCH (20:36)
[2020-07-06] MEDS: MONTELUKAST 10 MG TABLET PO SCH (20:36)
[2020-07-06] MEDS: SENNOSIDES 1 TABLET PO SCH (20:37)
[2020-07-06] MEDS: traZODone HCL 50 MG TABLET PO PRN (20:37)
[2020-07-06] MEDS: hydrOXYzine 25 MG TABLET PO PRN (20:38)
[2020-07-06] MEDS ORDERED: MELATONIN 3 MG TABLET PO SCH (21:00)
[2020-07-06] MEDS: LORazepam 1 MG TABLET PO PRN ×2 (22:00→23:58)
[2020-07-07] MEDS: hydrOXYzine 25 MG TABLET PO PRN (00:42)
[2020-07-07] MEDS ORDERED: HALOPERIDOL LACTATE 5 MG/ML VIAL IV ONE ×2 (01:52→08:10)
[2020-07-07] MEDS ORDERED: HALOPERIDOL LACTATE 5 MG/ML VIAL ONE (01:53)
[2020-07-07] MEDS: morphine 2 MG/ML VIAL IV PRN ×2 (01:59→10:14)
[2020-07-07] MEDS: LORazepam 1 MG TABLET PO PRN ×2 (02:23→07:30)
[2020-07-07] MEDS: diphenhydrAMINE 50 MG/ML VIAL IV PRN ×2 (02:34→06:22)
[2020-07-07] MEDS ORDERED: LORazepam 2 MG/ML VIAL ONE (03:30)
[2020-07-07] MEDS: LORazepam 2 MG/ML VIAL IV PRN ×5 (03:35→19:45)
[2020-07-07] MEDS: 0.9 % SODIUM CHLORIDE 10 ML SYRINGE IV SCH ×5 (04:39→21:59)
[2020-07-07] MEDS ORDERED: cloNIDine HCL 0.1 MG TABLET PO PRN ×2 (07:02→11:07)
[2020-07-07] MEDS ORDERED: HALOPERIDOL LACTATE 5 MG/ML VIAL IM PRN ×2 (07:02→11:07)
[2020-07-07] MEDS ORDERED: chlordiazePOXIDE 25 MG CAPSULE PO PRN ×2 (07:02→11:07)
--- NOTE | 2020-07-07 07:04 | Internal Med Progress Note ---
SUBJECTIVE Subjective Patient information: Note initiated : 07/07/20 at 7:01 am Service Date, if different from initiated Date: [] Patient: Emanuel Beyer 50 y/o M admitted on 07/04/20 for Fall. Chief Complaint: [] Interval history: 07/05 Overnight: not able to tolerate any oral intake. Subjective: Still c/o nausea vomiting and moderate epigastric pain. Also c/o anxiety. 07/06 Feeling better. No nausea vomiting hematemesis. Tolerating clear liquids well. Denies any withdrawal feelings. 07/07 Patient started having increasing withdrawal and alcohol last night. Confused this morning and agitated does make eye contact and occasionally will respond appropriately to my conversation with them. But needing a one-on-one right now. Transfer to pcu/ICU. Constitutional Vitals: Vital Signs Temp Pulse Resp BP Pulse Ox 98.4 F 114 H 20 140/68 97 07/07/20 06:30 07/07/20 06:30 07/07/20 06:30 07/07/20 06:30 07/07/20 06:30 Period Temp Pulse Resp BP Sys/Goodman Pulse Ox Last 24 Hr 97.5 F-98.8 F 102-115 16-22 121-142/66-88 97-98 Intake and Output 07/06/20 07/07/20 07/07/20 21:59 05:59 13:59 Intake Total 820 800 Output Total 350 Balance 820 450 Weight 72.439 kg Intake & Output: Intake & Output 07/06/20 07/07/20 07/07/20 21:59 05:59 13:59 Intake Total 820 800 Output Total 350 Balance 820 450 Weight 72.439 kg Intake: Oral 820 800 Output: Void Amount 350 Other: # Voids 1 Exam: General: awake, agitated Eyes/N/T: EOMI, Head/Neck: neck supple, CV: RRR, No murmurs, Pulm: Clear b/l, no wheezing/rhonchi/rales Abd: soft, nontender, +BS x4 Ext: no clubbing/cyanosis/edema Neuro: Alert, agitated, makes eye contacts, moves all extremities. Skin: warm/dry OBJ DATA Labs CBC & Chem 7: 07/06/20 06:35 07/06/20 06:35 Labs: Abnormal Lab Results 07/06/20 07/06/20 07/05/20 06:35 06:35 06:11 WBC RBC 3.12 L Hgb 10.2 L Hct 28.8 L MCHC Lymph % (Auto) [place] # (Auto) Lymphocytes % 12 L Absolute Neutrophils Reactive Lymphocytes 3 H RBC Morphology Abnormal A Polychromasia Few A Anisocytosis 1+ A Sodium 131 L Potassium 2.8 L* Chloride Anion Gap 7.0 L BUN Creatinine 0.6 L 0.6 L Glucose 106 H Calcium 8.3 L 7.5 L Phosphorus 2.3 L GGT 64 H AST 48 H 60 H ALT 61 H 59 H Lactate Dehydrogenase 411 H Urine Appearance Urine Protein Urine Ketones Urine Urobilinogen Hyaline Casts Urine Mucus Urine Sperm 07/05/20 07/04/20 07/04/20 06:11 19:55 15:15 WBC 14.6 H RBC 2.81 L Hgb 9.3 L Hct 25.4 L MCHC 36.6 H Lymph % (Auto) 13.4 L [place] # (Auto) 1.43 H Lymphocytes % Absolute Neutrophils 11.15 H Reactive Lymphocytes RBC Morphology Polychromasia Anisocytosis Sodium 125 L 127 L Potassium 2.8 L* 3.0 L Chloride 94 L 93 L Anion Gap 7.0 L BUN Creatinine 0.6 L Glucose Calcium 7.4 L 7.5 L Phosphorus GGT AST ALT Lactate Dehydrogenase Urine Appearance Urine Protein Urine Ketones Urine Urobilinogen Hyaline Casts Urine Mucus Urine Sperm 07/04/20 07/04/20 09:31 06:12 WBC RBC Hgb Hct MCHC Lymph % (Auto) [place] # (Auto) Lymphocytes % Absolute Neutrophils Reactive Lymphocytes RBC Morphology Polychromasia Anisocytosis Sodium 123 L Potassium 3.0 L Chloride 81 L Anion Gap BUN 25 H Creatinine Glucose 174 H Calcium Phosphorus GGT AST 72 H ALT 76 H Lactate Dehydrogenase Urine Appearance Hazy A Urine Protein 100 A Urine Ketones 20 A Urine Urobilinogen 2.0 A Hyaline Casts 13 H Urine Mucus Mod A Urine Sperm Present A Meds: Medications Albuterol Sulfate (Albuterol Sulfate 200 Puff Inhaler) 2 puff INH Q6HP PRN PRN Reason: shortness of breath Amitriptyline HCl (Amitriptyline 25 Mg Tablet) 100 mg PO HS [facility] Last Admin: 07/06/20 20:36 Dose: 100 mg Documented by: Amlodipine Besylate (Amlodipine 10 Mg Tablet) 10 mg PO DAILY [facility] Last Admin: 07/06/20 09:17 Dose: 10 mg Documented by: Diphenhydramine HCl (Diphenhydramine 50 Mg/Ml Vial) 25 mg IV Q4-6HP PRN PRN Reason: Nausea Last Admin: 07/07/20 06:22 Dose: 25 mg Documented by: Docusate Sodium (Docusate Sodium 100 Mg Capsule) 100 mg PO BID [facility] Last Admin: 07/06/20 20:36 Dose: Not Given Documented by: Duloxetine HCl (Duloxetine 30 Mg Capsule) 60 mg PO QDAY [facility] Last Admin: 07/06/20 09:14 Dose: 60 mg Documented by: Hydroxyzine HCl (Hydroxyzine 25 Mg Tablet) 0 mg PO Q4HP PRN PRN Reason: Anxiety/Agitation Last Admin: 07/07/20 00:42 Dose: 50 mg Documented by: Ibuprofen (Ibuprofen 600 Mg Tablet) 600 mg PO QIDP PRN; Protocol PRN Reason: Per Pain Protocol/Fever > 101 Last Admin: 07/06/20 16:51 Dose: 600 mg Documented by: Lorazepam (Lorazepam 1 Mg Tablet) 2 mg PO Q2HP PRN PRN Reason: CIWA-A >6 or HR >100 Last Admin: 07/07/20 02:23 Dose: 2 mg Documented by: Lorazepam (Lorazepam 2 Mg/Ml Vial) 0 mg IV Q1HP PRN; Protocol PRN Reason: CIWA-A >6 or HR >100 Last Admin: 07/07/20 06:21 Dose: 2 mg Documented by: Melatonin (Melatonin 3 Mg Tablet) 3 mg PO [facility] Last Admin: 07/06/20 22:00 Dose: 3 mg Documented by: Meloxicam (Meloxicam 7.5 Mg Tablet) 15 mg PO QDAY [facility] Last Admin: 07/06/20 09:16 Dose: 15 mg Documented by: Methocarbamol (Methocarbamol 750 Mg Tablet) 750 mg PO HSP PRN PRN Reason: muscle spasm Last Admin: 07/06/20 20:53 Dose: 750 mg Documented by: Montelukast Sodium (Montelukast 10 Mg Tablet) 10 mg PO QHS [facility] Last Admin: 07/06/20 20:36 Dose: 10 mg Documented by: Morphine Sulfate (Morphine 2 Mg/Ml Vial) 2 mg IV Q4HP PRN; Protocol PRN Reason: Per Pain Protocol Last Admin: 07/07/20 01:59 Dose: 2 mg Documented by: Ondansetron HCl (Ondansetron 4 Mg/2 Ml Vial) 4 mg IV Q6HP PRN PRN Reason: Nausea And Vomiting Oxycodone HCl (Oxycodone Hcl 5 Mg Tablet) 5 mg PO Q4HP PRN; Protocol PRN Reason: Per Pain Protocol Last Admin: 07/06/20 16:44 Dose: 5 mg Documented by: Pantoprazole Sodium (Pantoprazole 40 Mg Tablet) 40 mg PO BIDAC [facility] Last Admin: 07/06/20 16:51 Dose: 40 mg Documented by: Pregabalin (Pregabalin 25 Mg Capsule) 50 mg PO BID [facility] Last Admin: 07/06/20 20:37 Dose: 50 mg Documented by: Fluticasone/Salmeterol (Fluticasone/Salmeterol 500/50 Inhaler #14) 1 puff INH BID [facility] Last Admin: 07/06/20 20:36 Dose: Not Given Documented by: Senna (Sennosides 1 Tablet) 2 tab PO HS [facility] Last Admin: 07/06/20 20:37 Dose: Not Given Documented by: Sodium Chloride (0.9 % Sodium Chloride 10 Ml Syringe) 10 ml IV Q8 [facility] Last Admin: 07/07/20 04:39 Dose: 10 ml Documented by: Trazodone HCl (Trazodone Hcl 50 Mg Tablet) 25 mg PO HSP PRN PRN Reason: Insomnia Last Admin: 07/06/20 20:37 Dose: 25 mg Documented by: A/P Narrative A/P Narrative: A: *Alcoholic gastroparalysis: improved *Alcohol withdrawal: worsened last night *N/V/?Hematemesis: DDx: gastritis from GERD vs Kelsea-Gupta tear from alcoholism -none since admit *Hyponatremia, Chronicity unknown: improved *Hypokalemia: improved *Essential HTN: *Leukocytosis: REsolved, likely reactive -No foci of infection identified, CXR no signs of aspiration pneumonitis or pneumonia, UA no signs of UTI -Likely secondary to stress from alcoholism; intractable nausea vomiting hematemesis -Blood culture negative *Depression/Anxiety: *COPD *GERD: P: -CIWA protocol, vitamins, prn benzo -gi soft diet, advance as tolerated -Protonix BID -Continue Amlodipine/Lisinopril -cont home IH's -Refrain from alcohol consumption -pt/ot -ppx: SCD Time Spent With Patient Time: Total time spent is greater than 50% in coordination of care (as documented) at patient's floor/unit and/or counseling patient: QUALITY VTE Deep Vein Thrombosis/Pulmonary Embolism Present on Admission: No
[2020-07-07] MEDS ORDERED: GABAPENTIN 300 MG CAPSULE PO ONE (07:05)
[2020-07-07] MEDS: PANTOPRAZOLE 40 MG TABLET PO SCH ×2 (08:03→16:22)
[2020-07-07] MEDS: MELOXICAM 7.5 MG TABLET PO SCH (08:03)
[2020-07-07] MEDS: DULoxetine 30 MG CAPSULE PO SCH (08:03)
[2020-07-07] MEDS: PREGABALIN 25 MG CAPSULE PO SCH ×2 (08:03→21:57)
[2020-07-07] MEDS: FLUTICASONE/SALMETEROL 500/50 INHALER #14 INH SCH ×2 (08:03→21:56)
[2020-07-07] MEDS: DOCUSATE SODIUM 100 MG CAPSULE PO SCH ×2 (08:03→21:57)
[2020-07-07] MEDS: amLODIPine 10 MG TABLET PO SCH (08:04)
[2020-07-07] MEDS ORDERED: THIAMINE 100 MG TABLET PO SCH (09:00)
[2020-07-07] MEDS ORDERED: FOLIC ACID 1 MG TABLET PO SCH (09:00)
[2020-07-07] MEDS ORDERED: MULTIVIT,THER IRON,CA,FA & MIN 1 TABLET PO SCH (09:00)
[2020-07-07] MEDS ORDERED: morphine 2 MG/ML VIAL IV PRN (11:07)
[2020-07-07] MEDS ORDERED: IBUPROFEN 600 MG TABLET PO PRN (11:07)
[2020-07-07] MEDS ORDERED: traZODone HCL 50 MG TABLET PO PRN (11:07)
[2020-07-07] MEDS ORDERED: LORazepam (PP) 1 MG TABLET (#4) PO PRN (11:07)
[2020-07-07] MEDS ORDERED: ONDANSETRON 4 MG/2 ML VIAL IV PRN (11:07)
[2020-07-07] MEDS ORDERED: hydrOXYzine 25 MG TABLET PO PRN (11:07)
[2020-07-07] MEDS ORDERED: oxyCODONE HCL 5 MG TABLET PO PRN (11:07)
[2020-07-07] MEDS ORDERED: diphenhydrAMINE 50 MG/ML VIAL IV PRN (11:07)
[2020-07-07] MEDS ORDERED: ALBUTEROL SULFATE 200 PUFF INHALER INH PRN (11:07)
[2020-07-07] MEDS ORDERED: METHOCARBAMOL 750 MG TABLET PO PRN (11:07)
[2020-07-07] MEDS ORDERED: LORazepam 1 MG TABLET PO PRN (11:07)
[2020-07-07] MEDS ORDERED: DEXMEDETOMIDINE 400 MCG in PREMIX 1 BAG IV SCH (11:45)
[2020-07-07] MEDS ORDERED: 0.9 % SODIUM CHLORIDE 10 ML SYRINGE IV SCH (14:00)
[2020-07-07] MEDS: DEXMEDETOMIDINE 400 MCG in PREMIX 1 BAG IV SCH (15:38)
[2020-07-07] MEDS ORDERED: LABETALOL 5 MG/ML ML IV PRN (16:12)
[2020-07-07] MEDS: NACL 0.9% W/KCL 20MEQ 1,000 ML IV SCH (16:25)
[2020-07-07] MEDS ORDERED: ACETAMINOPHEN 1,000 MG/100 ML BAG IV ONE (18:55)
[2020-07-07] MEDS: ACETAMINOPHEN 1,000 MG/100 ML BAG IV PRN (19:00)
[2020-07-07] MEDS ORDERED: THIAMINE 100 MG/ML VIAL ONE (20:43)
[2020-07-07] MEDS: THIAMINE 100 MG in 0.9 % SODIUM CHLORIDE 50 ML IV SCH (20:59)
[2020-07-07] MEDS ORDERED: MONTELUKAST 10 MG TABLET PO SCH (21:00)
[2020-07-07] MEDS ORDERED: SENNOSIDES 1 TABLET PO SCH (21:00)
[2020-07-07] MEDS ORDERED: MELATONIN 3 MG TABLET PO SCH (21:00)
[2020-07-07] MEDS ORDERED: AMITRIPTYLINE 25 MG TABLET PO SCH (21:00)
[2020-07-07] MEDS: PANTOPRAZOLE 40 MG VIAL IV SCH (21:56)
[2020-07-08] MEDS: ACETAMINOPHEN 1,000 MG/100 ML BAG IV PRN ×2 (02:02→09:09)
[2020-07-08] MEDS: LORazepam 2 MG/ML VIAL IV PRN ×2 (02:30→06:44)
[2020-07-08] MEDS: 0.9 % SODIUM CHLORIDE 10 ML SYRINGE IV SCH ×4 (05:31→12:02)
[2020-07-08] MEDS: NACL 0.9% W/KCL 20MEQ 1,000 ML IV SCH ×2 (05:31→07:39)
[2020-07-08] MEDS: DOCUSATE SODIUM 100 MG CAPSULE PO SCH (07:17)
[2020-07-08] MEDS: PANTOPRAZOLE 40 MG TABLET PO SCH (07:17)
[2020-07-08] MEDS: FLUTICASONE/SALMETEROL 500/50 INHALER #14 INH SCH (07:17)
[2020-07-08] MEDS: PREGABALIN 25 MG CAPSULE PO SCH (07:18)
[2020-07-08] MEDS: PANTOPRAZOLE 40 MG VIAL IV SCH (07:19)
[2020-07-08] MEDS: THIAMINE 100 MG in 0.9 % SODIUM CHLORIDE 50 ML IV SCH (07:19)
[2020-07-08] MEDS ORDERED: PANTOPRAZOLE 40 MG VIAL IV SCH (07:30)
[2020-07-08] MEDS ORDERED: cloNIDine TTS 1 1 PATCH PATCH TD ONE (07:31)
--- NOTE | 2020-07-08 07:32 | Internal Med Progress Note ---
SUBJECTIVE Subjective Patient information: Note initiated : 07/08/20 at 7:27 am Service Date, if different from initiated Date: [] Patient: Emanuel Beyer 50 y/o M admitted on 07/04/20 for Fall. Chief Complaint: [] Interval history: History of present illness: Mr. Beyer is a 50 year old M h/o essential HTN, GERD, chronic alcoholism, alcoholic pancreatitis, p/w nausea, vomiting, hematemesis, and epigastric and periumbilical abdominal pain. Last prior similar episode was 1 month ago. He has been drinking heavily for years, typically drinks 36 cans of beer per day with last use 3 days ago. He has been having nausea, vomiting, hematemesis, and epigastric and periumbilical abdominal pain since stopped drinking. The pain is described as 8/10 in intensity, sharp, constant, no alleviating or exacerbating factors. Denies anxiety or diaphoresis or hand tremors. Unable to tolerating any food or drink since symptoms onset. 07/05 Overnight: not able to tolerate any oral intake. Subjective: Still c/o nausea vomiting and moderate epigastric pain. Also c/o anxiety. 07/06 Feeling better. No nausea vomiting hematemesis. Tolerating clear liquids well. Denies any withdrawal feelings. 07/07 Patient started having increasing withdrawal and alcohol last night. Confused this morning and agitated does make eye contact and occasionally will respond appropriately to my conversation with them. But needing a one-on-one right now. Transfer to ICU. 07/08 Agitated. High CIWA scores. Off and on the Precedex drip. Unable to gather review of systems given mentation Constitutional Vitals: Vital Signs Temp Pulse Resp BP Pulse Ox 99.0 F 108 H 26 H 149/109 92 07/08/20 06:03 07/07/20 12:01 07/08/20 06:03 07/08/20 06:03 07/08/20 06:03 Period Temp Pulse Resp BP Sys/Goodman Pulse Ox Last 24 Hr 98.1 F-105.3 F 72-108 15-39 117-172/69-137 88-100 Intake and Output 07/07/20 07/08/20 07/08/20 21:59 05:59 13:59 Intake Total 111 151 54 Output Total 352 740 100 Balance -241 -589 -46 Weight 67.495 kg Intake & Output: Intake & Output 07/07/20 07/08/20 07/08/20 21:59 05:59 13:59 Intake Total 111 151 54 Output Total 352 740 100 Balance -241 -589 -46 Weight 67.495 kg Intake: IV 111 151 54 Precedex 400 Mcg/100 ml 11 54 Dextrose 400 Mcg In Premix 1 Bag @ 0.2 MCG/KG/HR 3.622 mls/ hr IV .Q24H [facility] Rx#:[id number] Vitamin B1 100 mg In Sodium 51 Chloride 0.9% 50 ml @ 50 mls/hr IV DAILY [facility] Rx#:[id number] Output: Urine Catheter Amount 740 100 Void Amount 350 # of times incontinent of urine 2 Other: Urine Appearance Clear Clear Uretheral (Wright) Clear Urine Color Light Jennifer Light Jennifer Uretheral (Wright) Light Jennifer Exam: General: awake, agitated Eyes/N/T: EOMI, Head/Neck: neck supple, CV: RRR, No murmurs, Pulm: rhonchi b/l, no wheezing Abd: soft, nontender, +BS x4 Ext: no clubbing/cyanosis/edema Neuro: agitated, makes eye contacts, moves all extremities, confusion Skin: warm/dry OBJ DATA Labs CBC & Chem 7: 07/06/20 06:35 07/06/20 06:35 Labs: Abnormal Lab Results 07/06/20 07/06/20 07/05/20 06:35 06:35 06:11 WBC RBC 3.12 L Hgb 10.2 L Hct 28.8 L MCHC Lymph % (Auto) [place] # (Auto) Lymphocytes % 12 L Absolute Neutrophils Reactive Lymphocytes 3 H RBC Morphology Abnormal A Polychromasia Few A Anisocytosis 1+ A Sodium 131 L Potassium 2.8 L* Anion Gap 7.0 L Creatinine 0.6 L 0.6 L Glucose 106 H Calcium 8.3 L 7.5 L Phosphorus 2.3 L GGT 64 H AST 48 H 60 H ALT 61 H 59 H Lactate Dehydrogenase 411 H 07/05/20 06:11 WBC 14.6 H RBC 2.81 L Hgb 9.3 L Hct 25.4 L MCHC 36.6 H Lymph % (Auto) 13.4 L [place] # (Auto) 1.43 H Lymphocytes % Absolute Neutrophils 11.15 H Reactive Lymphocytes RBC Morphology Polychromasia Anisocytosis Sodium Potassium Anion Gap Creatinine Glucose Calcium Phosphorus GGT AST ALT Lactate Dehydrogenase Meds: Medications Albuterol Sulfate (Albuterol Sulfate 200 Puff Inhaler) 2 puff INH Q6HP PRN PRN Reason: shortness of breath Amitriptyline HCl (Amitriptyline 25 Mg Tablet) 100 mg PO HS [facility] Last Admin: 07/07/20 21:57 Dose: Not Given Documented by: Amlodipine Besylate (Amlodipine 10 Mg Tablet) 10 mg PO DAILY [facility] Last Admin: 07/08/20 07:18 Dose: Not Given Documented by: Chlordiazepoxide HCl (Chlordiazepoxide 25 Mg Capsule) 25 mg PO Q4HP PRN PRN Reason: Alcohol Withdrawal Clonidine HCl (Clonidine Hcl 0.1 Mg Tablet) 0.1 mg PO Q4HP PRN PRN Reason: ALC Diphenhydramine HCl (Diphenhydramine 50 Mg/Ml Vial) 25 mg IV Q4-6HP PRN PRN Reason: Nausea Docusate Sodium (Docusate Sodium 100 Mg Capsule) 100 mg PO BID [facility] Last Admin: 07/08/20 07:17 Dose: Not Given Documented by: Duloxetine HCl (Duloxetine 30 Mg Capsule) 60 mg PO QDAY [facility] Last Admin: 07/08/20 07:17 Dose: Not Given Documented by: Folic Acid (Folic Acid 1 Mg Tablet) 1 mg PO DAILY [facility] Last Admin: 07/08/20 07:18 Dose: Not Given Documented by: Haloperidol Lactate (Haloperidol Lactate 5 Mg/Ml Vial) 0.5 mg IM Q2HP PRN PRN Reason: Alcohol Withdrawal Hydroxyzine HCl (Hydroxyzine 25 Mg Tablet) 0 mg PO Q4HP PRN PRN Reason: Anxiety/Agitation Dexmedetomidine HCl 400 mcg/ (Premix) 100 mls @ 3.622 mls/hr IV .Q24H [facility]; Protocol Last Admin: 07/07/20 15:38 Dose: Not Given Documented by: Potassium Chloride/Sodium Chloride (Nacl 0.9% W/Kcl 20meq 1000ml) 1,000 mls @ 75 mls/hr IV .[id number] [facility] Last Admin: 07/08/20 05:31 Dose: Not Given Documented by: Thiamine HCl 100 mg/ Sodium (Chloride) 51 mls @ 50 mls/hr IV DAILY [facility] Stop: 07/09/20 10:02 Last Admin: 07/08/20 07:19 Dose: Not Given Documented by: Acetaminophen (Ofirmev) 1,000 mg in 100 mls @ 200 mls/hr IV Q6HP PRN; Protocol PRN Reason: PAIN/FEVER > 101 Last Infusion: 07/08/20 03:07 Dose: Infused Documented by: Ibuprofen (Ibuprofen 600 Mg Tablet) 600 mg PO QIDP PRN; Protocol PRN Reason: Per Pain Protocol/Fever > 101 Iron Carb/Multivit/[place]/Folic Acid (Multivit,Ther Iron,Ca,Fa & Min 1 Tablet) 1 tab PO DAILY [facility] Last Admin: 07/08/20 07:18 Dose: Not Given Documented by: Labetalol HCl (Labetalol 5 Mg/Ml Ml) 0 mg IV Q2HP PRN PRN Reason: Hypertension Lorazepam (Lorazepam 1 Mg Tablet) 2 mg PO Q2HP PRN PRN Reason: CIWA-A >6 or HR >100 Lorazepam (Lorazepam 2 Mg/Ml Vial) 0 mg IV Q1HP PRN; Protocol PRN Reason: CIWA-A >6 or HR >100 Last Admin: 07/08/20 06:44 Dose: 4 mg Documented by: Melatonin (Melatonin 3 Mg Tablet) 3 mg PO HS [facility] Last Admin: 07/07/20 21:57 Dose: Not Given Documented by: Meloxicam (Meloxicam 7.5 Mg Tablet) 15 mg PO QDAY [facility] Last Admin: 07/08/20 07:18 Dose: Not Given Documented by: Methocarbamol (Methocarbamol 750 Mg Tablet) 750 mg PO HSP PRN PRN Reason: muscle spasm Montelukast Sodium (Montelukast 10 Mg Tablet) 10 mg PO QHS [facility] Last Admin: 07/07/20 21:57 Dose: Not Given Documented by: Morphine Sulfate (Morphine 2 Mg/Ml Vial) 2 mg IV Q4HP PRN; Protocol PRN Reason: Per Pain Protocol Ondansetron HCl (Ondansetron 4 Mg/2 Ml Vial) 4 mg IV Q6HP PRN PRN Reason: Nausea And Vomiting Oxycodone HCl (Oxycodone Hcl 5 Mg Tablet) 5 mg PO Q4HP PRN; Protocol PRN Reason: Per Pain Protocol Pantoprazole Sodium (Pantoprazole 40 Mg Tablet) 40 mg PO BIDAC [facility] Last Admin: 07/08/20 07:17 Dose: Not Given Documented by: Pantoprazole Sodium (Pantoprazole 40 Mg Vial) 40 mg IV BID [facility] Last Admin: 07/08/20 07:19 Dose: Not Given Documented by: Pregabalin (Pregabalin 25 Mg Capsule) 50 mg PO BID [facility] Last Admin: 07/08/20 07:18 Dose: Not Given Documented by: Fluticasone/Salmeterol (Fluticasone/Salmeterol 500/50 Inhaler #14) 1 puff INH BID [facility] Last Admin: 07/08/20 07:17 Dose: Not Given Documented by: Senna (Sennosides 1 Tablet) 2 tab PO HS [facility] Last Admin: 07/07/20 21:57 Dose: Not Given Documented by: Sodium Chloride (0.9 % Sodium Chloride 10 Ml Syringe) 10 ml IV Q8 [facility] Last Admin: 07/08/20 05:31 Dose: Not Given Documented by: Sodium Chloride (0.9 % Sodium Chloride 10 Ml Syringe) 10 ml IV Q8 [facility] Last Admin: 07/08/20 06:26 Dose: Not Given Documented by: Thiamine HCl (Thiamine 100 Mg Tablet) 100 mg PO QDAY [facility] Last Admin: 07/08/20 07:19 Dose: Not Given Documented by: Trazodone HCl (Trazodone Hcl 50 Mg Tablet) 25 mg PO HSP PRN PRN Reason: Insomnia A/P Narrative A/P Narrative: A: *Alcohol withdrawal with DT's: *Alcoholic gastroparalysis: improved *N/V/Hematemesis: DDx: gastritis from GERD vs Kelsea-Gupta tear from alcoholism -none since admit *Hyponatremia, Chronicity unknown: improved *Hypokalemia: improved *Essential HTN: *Leukocytosis: REsolved, likely reactive -No foci of infection identified, CXR no signs of aspiration pneumonitis or pneumonia, UA no signs of UTI -Likely secondary to stress from alcoholism; intractable nausea vomiting hematemesis -Blood culture negative *Depression/Anxiety: *COPD *GERD: P: -wean precedex gtt off -prn ativan -CIWA protocol, vitamins -IVF -currently npo. gi soft diet, advance as tolerated when taking orally -Protonix BID -Continue Amlodipine/Lisinopril -cont home IH's -Refrain from alcohol consumption -pt/ot -ppx: SCD Time Spent With Patient Time: Total time spent is greater than 50% in coordination of care (as documented) at patient's floor/unit and/or counseling patient: QUALITY VTE Deep Vein Thrombosis/Pulmonary Embolism Present on Admission: No
[2020-07-08] MEDS: DEXMEDETOMIDINE 400 MCG in PREMIX 1 BAG IV SCH (08:47)
[2020-07-08] MEDS ORDERED: MULTIVIT,THER IRON,CA,FA & MIN 1 TABLET PO SCH (09:00)
[2020-07-08] MEDS ORDERED: DULoxetine 30 MG CAPSULE PO SCH (09:00)
[2020-07-08] MEDS ORDERED: MELOXICAM 7.5 MG TABLET PO SCH (09:00)
[2020-07-08] MEDS ORDERED: amLODIPine 10 MG TABLET PO SCH (09:00)
[2020-07-08] MEDS ORDERED: THIAMINE 100 MG TABLET PO SCH (09:00)
[2020-07-08] MEDS ORDERED: FOLIC ACID 1 MG TABLET PO SCH (09:00)
[2020-07-08 09:17] LABS: ALT/SGPT 52 U/L (<40); AST/SGOT 26 U/L (<40); Albumin 3.6 gm/dL (3.2-5.2); Albumin/Globulin Ratio 1.1 (1.0-2.3); Alkaline Phosphatase 72 U/L (39-117); Bilirubin,Direct 0.2 mg/dL (<0.3); Bilirubin,Total 0.5 mg/dL (0.1-1.0); Blood Urea Nitrogen 11 mg/dL (6-20); Calcium 8.8 mg/dL (8.6-10.4); Carbon Dioxide 25 mmol/L (22-30); Chloride 101 mmol/L (96-108); Globulin 3.3 gm/dL (2.2-3.7); Glomerular Filtration Rate 104; Glucose 94 mg/dL (70-105); Lactate Dehydrogenase 410 U/L (135-225); Phosphorous 3.6 mg/dL (2.5-4.5); Triglycerides 78 mg/dL (<150)
[2020-07-08] MEDS ORDERED: MIDAZOLAM 2 MG/2 ML VIAL IV ONE ×2 (09:18→10:15)
[2020-07-08] MEDS ORDERED: fentaNYL 100 MCG/2 ML VIAL IV ONE ×2 (10:00→10:04)
[2020-07-08] MEDS ORDERED: ONDANSETRON 4 MG/2 ML VIAL IV ONE (10:04)
[2020-07-08] MEDS ORDERED: ROCURONIUM 10 MG/ML ML IV ONE ×2 (10:25→11:13)
--- NOTE | 2020-07-08 10:37 | Procedure Note ---
PROC Intubation Time out performed: Yes Date of Procedure: 07/08/20 Sedative: Fentanyl Paralytic: Rocuronium ETT: ETCO2 Laryngoscope: 3 Assist device used: glide ET tube size: 7.5 Tube placement confirmation: visualized tube passing through cords and equal breath sounds bilaterally Additional comments: And severe withdrawal with DTs and airway compromise requiring intubation
--- NOTE | 2020-07-08 11:01 | XRay Report ---
CLINICAL INFORMATION: Endotracheal tube placement COMPARISON: 31/05/2020. FINDINGS: Endotracheal tip is 5.9 cm above the jean. Cardiomediastinal silhouette and pulmonary vessels are normal. Small infiltrate has developed in the right base. There is minor atelectasis left base. No effusions IMPRESSION: Moderate right base. Endotracheal tip 5.9 cm above the jean. Interpreted and Authenticated by: Michael Camarena 07/08/20
[2020-07-08] MEDS ORDERED: fentaNYL 100 MCG/2 ML VIAL IV PRN (11:07)
[2020-07-08] MEDS ORDERED: PROPOFOL 1,000 MG in PREMIX 1 BAG IV SCH (11:15)
--- NOTE | 2020-07-08 14:40 | Transfer Summary ---
Discharge Provider Provider Patient information: Note initiated : 07/08/20 at 2:37 pm Service Date, if different from initiated Date: [] Patient: Emanuel Beyer 50 y/o M admitted on 07/04/20 for Fall. Chief Complaint: [] Date of admission: 07/04/20 12:56 Discharge date: 07/08/20 Primary care physician: NAJMA Johnson Consults: 07/04/20 Consult to Physician [CONS] Stat Comment: Consulting Provider: Jerry Vernon Reason For Exam: Physician to Consult Discharge Meds Discharge Medications Home Medications promethazine 25 mg tablet 25 mg PO Q6H PRN #30 tab 01/25/17 [Rx Confirmed 07/04/20 Last Taken Unknown] bilat thumb spica splint #2 each 04/12/19 [Rx Confirmed 07/04/20 Last Taken Unknown] albuterol sulfate 90 mcg/actuation aerosol inhaler 90 mcg INHALATION Q6H PRN #18 g 08/07/19 [Rx Confirmed 07/04/20 Last Taken 06/29/20] fluticasone propionate 50 mcg/actuation nasal spray,suspension 1 spray INTRANASAL BID #16 g 08/07/19 [Rx Confirmed 07/04/20 Last Taken 06/27/20] lisinopril 20 mg tablet See Rx Instructions .ROUTE .COMPLEX #30 tab 11/21/19 [Rx Confirmed 07/04/20 Last Taken 06/27/20] lorazepam 1 mg tablet 1 mg PO ONCE PRN #2 tab 12/17/19 [Rx Confirmed 07/04/20 Last Taken Unknown] pregabalin 50 mg capsule 50 mg PO .COMPLEX #60 cap 01/15/20 [Rx Confirmed 07/04/20 Last Taken Unknown] fluticasone 500 mcg-salmeterol 50 mcg/dose blistr powdr for inhalation See Rx Instructions .ROUTE .COMPLEX #60 each 02/20/20 [Rx Confirmed 07/04/20 Last Taken 06/27/20] meloxicam 15 mg tablet 15 mg PO QDAY #30 tab 04/30/20 [Rx Confirmed 07/04/20 Last Taken 06/27/20] montelukast 10 mg tablet 10 mg PO QHS #90 tab 04/30/20 [Rx Confirmed 07/04/20 Last Taken Unknown] amitriptyline 100 mg tablet See Rx Instructions .ROUTE .COMPLEX #90 tab 05/08/20 [Rx Confirmed 07/04/20 Last Taken 06/27/20] amlodipine 10 mg tablet See Rx Instructions .ROUTE .COMPLEX #90 tab 05/20/20 [Rx Confirmed 07/04/20 Last Taken 06/27/20] methocarbamol 750 mg tablet 750 mg PO QHS PRN #30 tab 05/23/20 [Rx Confirmed 07/04/20 Last Taken 06/27/20] hydrocodone 7.5 mg-acetaminophen 325 mg tablet 1 tab PO QHS PRN #30 tab MDD 1 06/13/20 [Rx Confirmed 07/04/20 Last Taken 06/27/20] duloxetine 60 mg capsule,delayed release 60 mg PO QDAY #30 cap 06/24/20 [Rx Confirmed 07/04/20 Last Taken 06/27/20] pantoprazole 40 mg PO BIDAC #60 tab 07/06/20 [Rx Last Taken Unknown] COURSE Hospital Course Hospital course: Interval history: History of present illness: Mr. Beyer is a 50 year old M h/o essential HTN, GERD, chronic alcoholism, alcoholic pancreatitis, p/w nausea, vomiting, hematemesis, and epigastric and periumbilical abdominal pain. Last prior similar episode was 1 month ago. He has been drinking heavily for years, typically drinks 36 cans of beer per day with last use 3 days ago. He has been having nausea, vomiting, hematemesis, and epigastric and periumbilical abdominal pain since stopped drinking. The pain is described as 8/10 in intensity, sharp, constant, no alleviating or exacerbating factors. Denies anxiety or diaphoresis or hand tremors. Unable to tolerating any food or drink since symptoms onset. 07/05 Overnight: not able to tolerate any oral intake. Subjective: Still c/o nausea vomiting and moderate epigastric pain. Also c/o anxiety. 07/06 Feeling better. No nausea vomiting hematemesis. Tolerating clear liquids well. Denies any withdrawal feelings. 07/07 Patient started having increasing withdrawal and alcohol last night. Confused this morning and agitated does make eye contact and occasionally will respond appropriately to my conversation with them. But needing a one-on-one right now. Transfer to ICU. 07/08 Agitated. High CIWA scores. Off and on the Precedex drip. *Case discussed with the [place] bleach packer Dr. Polanco who graciously excepted patient's care. Patient was transferred up to [place] A: *Alcohol withdrawal with DT's: *Alcoholic gastroparalysis: improved *N/V/Hematemesis: DDx: likely eso/gastritis -none since admit *Hyponatremia, Chronicity unknown: improved *Hypokalemia: improved *Essential HTN: *Leukocytosis: REsolved, likely reactive -No foci of infection identified, CXR no signs of aspiration pneumonitis or pneumonia, UA no signs of UTI -Likely secondary to stress from alcoholism; intractable nausea vomiting hematemesis -Blood culture negative *Depression/Anxiety: *COPD: *GERD: Discharge diagnosis: Alcohol withdrawal with delirium tremens nausea vomiting electrolyte abnorm Secondary discharge diagnosis: Hypertension COPD depression anxiety GERD Time Spent with Patient Time attestation: Total time spent providing and/or coordinating discharge services: Time spent: Greater than 30 minutes EXAM Constitutional Vitals: Temp Pulse Resp BP Pulse Ox 100.7 F H 108 H 16 102/63 99 07/08/20 14:06 07/07/20 12:01 07/08/20 14:06 07/08/20 14:00 07/08/20 14:06 Discharge Data Data Completed and Pending Labs on day of discharge: Labs from last 24 hours 07/08/20 08:08 Sodium 136 Potassium 4.0 Chloride 101 Carbon Dioxide 25 Anion Gap 10.0 BUN 11 Creatinine 0.8 GFR Calculation 104 Glucose 94 Uric Acid 4.0 Calcium 8.8 Phosphorus 3.6 Magnesium 2.3 Total Bilirubin 0.5 Direct Bilirubin 0.2 GGT 52 AST 26 ALT 52 H Alkaline Phosphatase 72 Lactate Dehydrogenase 410 H Total Protein 6.9 Albumin 3.6 Globulin 3.3 Albumin/Globulin Ratio 1.1 Triglycerides 78 Preliminary micro results at discharge 07/04/20 08:04 Blood Culture - Preliminary Blood 07/04/20 07:57 Blood Culture - Preliminary Blood Discharge Plan Patient/Caregiver Discharge Instructions Activity: increase activity as tolerated Diet: Regular Diet and Low Fat Prescriptions: New pantoprazole 40 mg Tablet,Delayed Release (Dr/Ec) 40 mg PO BIDAC Qty: 60 RF: 0 Continued (DME) bilat thumb spica splint medium Qty: 2 RF: 0 lisinopril 20 mg tablet See Rx Instructions .ROUTE .COMPLEX Qty: 30 RF: 8 lorazepam 1 mg tablet 1 mg PO ONCE PRN (Reason: anxiety) Qty: 2 RF: 0 fluticasone propion-salmeterol 500-50 mcg/dose blister with device See Rx Instructions .ROUTE .COMPLEX Qty: 60 RF: 0 montelukast 10 mg tablet 10 mg PO QHS Qty: 90 RF: 1 meloxicam 15 mg tablet 15 mg PO QDAY Qty: 30 RF: 0 amitriptyline 100 mg tablet See Rx Instructions .ROUTE .COMPLEX Qty: 90 RF: 0 amlodipine 10 mg tablet See Rx Instructions .ROUTE .COMPLEX Qty: 90 RF: 0 methocarbamol 750 mg tablet 750 mg PO QHS PRN (Reason: muscle spasm) Qty: 30 RF: 0 hydrocodone-acetaminophen 7.5-325 mg tablet 1 tab PO QHS MDD 1 PRN (Reason: pain) Qty: 30 RF: 0 fluticasone propionate [Flonase Allergy Relief] 50 mcg/actuation spray,suspension 1 spray Intranasal BID Qty: 16 RF: 11 albuterol sulfate 90 mcg/actuation HFA aerosol inhaler 90 mcg INHALATION Q6H PRN (Reason: shortness of breath) Qty: 18 RF: 2 pregabalin [Lyrica] 50 mg capsule 50 mg PO .COMPLEX Qty: 60 RF: 2 promethazine 25 mg tablet 25 mg PO Q6H PRN (Reason: nausea and vomiting) Qty: 30 RF: 0 duloxetine [Cymbalta] 60 mg capsule,delayed release(DR/EC) 60 mg PO QDAY Qty: 30 RF: 3 Discontinued omeprazole 40 mg capsule,delayed release(DR/EC) See Rx Instructions .ROUTE .COMPLEX Qty: 30 RF: 9 Follow Up Plan Follow up with: Britany Chow ARNP [Primary Care Provider] - Patient Disposition: [facility] Prognosis: Fair Rehab Potential: Fair Overall status at discharge: patient is progressing back to baseline Discharge Orders: Discharge Order (Routine); Ordered 07/08/20 Ordered By: Eduardo Go [facility] VTE Deep Vein Thrombosis/Pulmonary Embolism Present on Admission: No
--- NOTE | 2020-07-08 15:24 | XRay Report ---
CLINICAL INFORMATION: og tube placement COMPARISON: None. FINDINGS: OG tube overlies the gastric antrum. No free air. Mild dilatation of the transverse colon likely indicates ileus. Abdomen incompletely imaged. IMPRESSION: Old G-tube overlying the gastric antrum. Probable mild ileus. Abdomen was incompletely imaged Interpreted and Authenticated by: Michael Camarena 07/08/20
== END 2020-07-08 15:30 | disposition short-term general hospital (02) | DRG 896 ==
LOC: ED 05:36 → MEDSUR 12:56 → ICU 07-07 11:27
PROVIDERS: ADMIT Internal Medicine; ATTEND Internal Medicine